=== PATIENT | female | born 2000 | race Caucasian/White ===

== ENCOUNTER → 2020-03-19 09:18 | Outpatient (CLI) | payer OTHER, SELFPAY ==
--- NOTE | ~2020-03-19 | MR_ITS ---
EXAMINATION: MR brain/brain stem wo/w con DATE: 03/19/2020 10:02 INDICATION: Increased severity of headache. Dizziness. TECHNIQUE: Magnetic resonance imaging (MRI) of the brain and brainstem was performed without and with 10 mL MultiHance intravenous contrast. Sequences included sagittal and axial T1-weighted FSE, axial diffusion-weighted FS EPI, axial T2*-weighted GRE, axial T2-weighted FLAIR Propeller, and axial T2-we ighted Propeller. Postcontrast sequences included axial and coronal T1-weighted FSE. Apparent diffusi on coefficient (ADC) maps were created. COMPARISON: None. FINDINGS: There is no intracranial hemorrhage, acute infarction, or abnormal intracranial mass lesion . The ventricles are normal in size. There is mild mucosal thickening in the paranasal sinuses. The o rbits are normal. The mastoid air cells are normal. IMPRESSION: 1. Normal brain. Reviewed, dictated and finalized at location A. IMPRESSION: 1. Normal brain.
[2020-03-19 09:40] LABS: Estimated Glomerular Filt Rate > 60
== END ==
PROVIDERS: PCP Registered Nurse; Visit Provider Registered Nurse
DX: R51.9 Headache, unspecified (principal); R42 Dizziness and giddiness
CPT/HCPCS: 70553; A9577

== ENCOUNTER 2024-05-23 15:41 | Inpatient (IN) | payer OTHER, BC, SELFPAY ==
[2024-05-23] VITALS (19 sets, daily range): BP systolic 84–122; BP diastolic 61–85; PULSE 59–101; TEMP 36.2–36.6; BMI 27.6
--- NOTE | 2024-05-23 15:41 | LDADM ---
This patient, Pushpa Alvarado, was admitted to Labor/Delivery/Recovery 108 on 05/23/24 at 15:41. Plans for labor, pain management and were discussed with patient. Patient/family oriented to hospital policies and general routines including ID bracelet, bed and alarms, visiting hours, pain management, procedures, bathroom and other care routines, personal items, smoking policy, room service/diet and guest tray routines, infant security routines, and visiting hours. Patient/Family are encouraged to report perceived risks to care and to ask questions if they do not understand what they are told or what they should do. See OBIX for further documentation.
[2024-05-23 16:27] LABS: Basophils Percent Auto 0.3 % (0.2-1.2); Eosinophils Absolute Auto 0.1 K/mm3 (0-0.3); Eosinophils Percent Auto 0.6 % (0-4.4); Hematocrit 35.4 % (37.0-47.0); Hemoglobin 12.4 g/dL (12.0-15.0); Immature Granulocyte Absolute 0.04 K/mm3 (0.00-0.031); Immature Granulocyte Percent A 0.4 % (0-0.5); Lymphocytes Absolute Auto 2.25 K/mm3 (0.9-3.2); Lymphocytes Percent Auto 20.1 % (18.3-44.2); Mean Corpuscular Hemoglobin 32.5 pg (26-34); Mean Corpuscular Volume 92.9 fl (80-100); Mean Platelet Volume 12.2 fl (7.4-10.4); Monocytes Absolute Auto 0.5 K/mm3 (0.1-0.6); Monocytes Percent Auto 4.3 % (2.6-8.5); Neutrophils Absolute Auto 8.3 K/mm3 (1.3-6.7); Neutrophils Percent Auto 74.3 % (45.5-73.1); Platelet Count Result 173 k/mm3 (150-375); Red Blood Count 3.81 M/mm3 (4.2-5.4); Red Cell Distribution Width 11.9 % (11.5-14.5); White Blood Count 11.2 K/mm3 (4.5-10.0)
[2024-05-23 16:56] LABS: Rapid Plasma Reagin Non-Reactive (NonReactive)
[2024-05-23] MEDS: DINOPROSTONE 10 MG VAG INSERT VAGINAL (17:13)
[2024-05-23 17:21] LABS: HIV 1/2 Ab P24 Ag Result Negative (Negative)
[2024-05-24] VITALS (164 sets, daily range): BP systolic 69–170; BP diastolic 45–106; PULSE 55–238; RESP 16; TEMP 36.2–37.2; O2SAT 92–100
[2024-05-24] MEDS: ACETAMINOPHEN 500 MG TABLET 1000 MG PO (01:22)
[2024-05-24] MEDS: fentaNYL CITRATE INJ (*CRX) 100 MCG/2 ML VIAL 50 MCG IV PUSH (03:47)
[2024-05-24] MEDS: LACTATED RINGERS 1,000 ML 999 ML IV CONT (05:15)
--- NOTE | 2024-05-24 05:55 | WPDANESEPPF ---
Anes - Initial Pre Proc Eval Procedure: Labor Epidural Date/Time: 05/24/24 05:55 Surgeon: Kilo Desir MD Pre Op Diagnosis: Labor Pain Pre Op Diagnosis: IOL Patient Data Age: 23 Gender: F Height: 1.63 m Weight: 73 kg Last Vital Signs Temp 37.2 C 05/24/24 05:15 Pulse 76 05/24/24 05:00 BP 106/75 05/24/24 05:00 Pulse Ox 97 05/24/24 05:51 O2 Del Method Room Air 05/23/24 17:20 Allergies Allergy/AdvReac Type Severity Reaction Status Date / Time No Known Allergies Allergy Verified 04/25/24 14:27 Home Medications ?Medication ?Instructions ?Recorded ?Confirmed ?Type vits no.126-ferrous fum 1 tablet PO DAILY 04/25/24 05/23/24 History 28 mg iron-folic acid 800 mcg tablet (Classic ) Laboratory Tests 05/23/24 16:07 WBC 11.2 H K/mm3 (4.5-10.0) RBC 3.81 L M/mm3 (4.2-5.4) Hgb 12.4 g/dL (12.0-15.0) Hct 35.4 L % (37.0-47.0) MCV 92.9 fl (80-100) MCH 32.5 pg (26-34) MCHC 35.0 g/dl (32-36) RDW 11.9 % (11.5-14.5) Plt Count 173 k/mm3 (150-375) MPV 12.2 H fl (7.4-10.4) Immature Gran % (Auto) 0.4 % (0-0.5) Neut % (Auto) 74.3 H % (45.5-73.1) Lymph % (Auto) 20.1 % (18.3-44.2) [place] % (Auto) 4.3 % (2.6-8.5) Eos % (Auto) 0.6 % (0-4.4) Baso % (Auto) 0.3 % (0.2-1.2) Lymph # (Auto) 2.25 K/mm3 (0.9-3.2) [place] # (Auto) 0.5 K/mm3 (0.1-0.6) Eos # (Auto) 0.1 K/mm3 (0-0.3) Baso # (Auto) 0.0 K/mm3 (0.0-0.1) Abs Immat Gran (auto) 0.04 H K/mm3 (0.00-0.031) Absolute Neuts (auto) 8.3 H K/mm3 (1.3-6.7) Absolute Nucleated RBC 0.000 K/mm3 (0.0-0.012) Nucleated RBC % 0.0 % (0.0-0.2) RPR Non-reactive (NonReactive) HIV 1&2 Ab/P24 Ag 4thGn Negative (Negative) Blood Type B Positive Antibody Screen Negative : gestational age (, [place] 05/19/24) Patient hx anesthesia problems: none Family hx anesthesia problems: none Results Review: All pre-operative results and documents have been reviewed as part of the pre-operative evaluation. [facility] Family History Family History Grandparent Breast cancer Mother H/O: hysterectomy Grandparent H/O: hysterectomy Social History Social History Smoking status: Former smoker Second hand tobacco smoke exposure: No Substance use: former Do You Feel Safe in your Home?: Yes Lack of Transportation: No Lack of Food: Never True Current Housing: I Have Housing Concerned About Future Housing: No Difficulty Paying Gas/Electric Bills: No Difficulty Paying for Meds: No Currently Unemployed: No Education: Bachelor's Degree Difficulty w/ Childcare or Family Care: No Spiritual care concerns: No Anes - Eval Final PreProcedure Day of Procedure 05/24/24 05:55 Patient weight: normal Heart: regular rate and rhythm Lungs: normal air movement Airway: Mallampati scale class II Neurological: alert and oriented Last oral intake: 2 hours ASA classification: II Emergent: no Anesthetic plan: proceed Anesthesia type and monitoring: regional epidural and standard monitoring Results Review: All pre-operative results and documents have been reviewed as part of the pre-operative evaluation. Informed Consent: The patient's anesthetic plan and its attendant risks and benefits were discussed with the patient/family/POA. Questions were solicited and answers provided to the satisfaction of the patient/family/POA.
--- NOTE | 2024-05-24 08:55 | PM.IMHP ---
H&P: HPI History of Present Illness Date/Time: 05/24/24 08:55 Chief Complaint: Here for induction of labor Narrative: 23 y/o G1 at 40 5/7 weeks here for induction of labor. Cervidil overnight, has been withdrawn. GBS neg. Now comfortable with epidural. Had SROM this morning, clear fluid. Review of Systems Review of Systems: All systems reviewed & are unremarkable except as noted in HPI and below PMFSH Past Medical History Medical History History of migraine Surgical History Surgical History History of wisdom tooth extraction Hx of LASIK Family History Family History Grandparent Breast cancer Mother H/O: hysterectomy Grandparent H/O: hysterectomy Social History Social History Smoking status: Former smoker Second hand tobacco smoke exposure: No Substance use: former Do You Feel Safe in your Home?: Yes Lack of Transportation: No Lack of Food: Never True Current Housing: I Have Housing Concerned About Future Housing: No Difficulty Paying Gas/Electric Bills: No Difficulty Paying for Meds: No Currently Unemployed: No Education: Bachelor's Degree Difficulty w/ Childcare or Family Care: No Spiritual care concerns: No Meds Home Medications and Allergies Home Medications ?Medication ?Instructions ?Recorded ?Confirmed ?Type vits no.126-ferrous fum 1 tablet PO DAILY 04/25/24 05/23/24 History 28 mg iron-folic acid 800 mcg tablet (Classic ) Allergies Allergy/AdvReac Type Severity Reaction Status Date / Time No Known Allergies Allergy Verified 04/25/24 14:27 Vital Signs Vital Signs - 24 hr 05/23/24 16:21 05/23/24 16:30 05/23/24 16:45 Temperature Pulse Rate 69 90 78 Blood Pressure 110/85 109/76 110/72 Pulse Oximetry Oxygen Delivery 05/23/24 17:00 05/23/24 17:16 05/23/24 17:18 Temperature 36.2 C L Pulse Rate 86 86 Blood Pressure 104/81 118/82 Pulse Oximetry Oxygen Delivery 05/23/24 17:19 05/23/24 17:20 05/23/24 17:30 Temperature 36.2 C L Pulse Rate 100 Blood Pressure 94/63 L Pulse Oximetry Oxygen Delivery Room Air 05/23/24 17:45 05/23/24 18:00 05/23/24 18:15 Temperature Pulse Rate 88 78 98 Blood Pressure 107/75 114/73 106/71 Pulse Oximetry Oxygen Delivery 05/23/24 18:30 05/23/24 18:45 05/23/24 19:00 Temperature Pulse Rate 101 H 100 76 Blood Pressure 113/70 106/61 122/83 Pulse Oximetry Oxygen Delivery 05/23/24 19:16 05/23/24 20:00 05/23/24 21:00 Temperature 36.6 C Pulse Rate 81 75 85 Blood Pressure 111/64 114/80 114/84 Pulse Oximetry Oxygen Delivery 05/23/24 22:00 05/23/24 23:00 05/24/24 00:00 Temperature Pulse Rate 68 59 L 62 Blood Pressure 99/65 L 84/69 L 125/75 Pulse Oximetry Oxygen Delivery 05/24/24 01:00 05/24/24 02:00 05/24/24 02:28 Temperature Pulse Rate 64 103 H Blood Pressure 130/79 114/71 Pulse Oximetry 98 Oxygen Delivery 05/24/24 02:33 05/24/24 02:36 05/24/24 02:41 Temperature Pulse Rate Blood Pressure Pulse Oximetry 98 99 98 Oxygen Delivery 05/24/24 02:46 05/24/24 02:51 05/24/24 02:54 Temperature Pulse Rate Blood Pressure Pulse Oximetry 99 99 96 Oxygen Delivery 05/24/24 02:54 05/24/24 02:59 05/24/24 03:04 Temperature Pulse Rate Blood Pressure Pulse Oximetry 99 96 99 Oxygen Delivery 05/24/24 03:09 05/24/24 03:14 05/24/24 03:19 Temperature Pulse Rate Blood Pressure Pulse Oximetry 98 98 98 Oxygen Delivery 05/24/24 03:23 05/24/24 03:28 05/24/24 03:33 Temperature Pulse Rate Blood Pressure Pulse Oximetry 98 99 97 Oxygen Delivery 05/24/24 03:38 05/24/24 03:43 05/24/24 03:48 Temperature Pulse Rate Blood Pressure Pulse Oximetry 99 100 99 Oxygen Delivery 05/24/24 03:53 05/24/24 03:58 05/24/24 04:00 Temperature Pulse Rate 72 70 Blood Pressure 110/68 118/62 Pulse Oximetry 98 97 Oxygen Delivery 05/24/24 04:03 05/24/24 04:08 05/24/24 04:13 Temperature Pulse Rate Blood Pressure Pulse Oximetry 97 98 97 Oxygen Delivery 05/24/24 04:18 05/24/24 04:23 05/24/24 04:28 Temperature Pulse Rate Blood Pressure Pulse Oximetry 96 98 98 Oxygen Delivery 05/24/24 04:33 05/24/24 04:38 05/24/24 04:43 Temperature Pulse Rate Blood Pressure Pulse Oximetry 97 97 98 Oxygen Delivery 05/24/24 04:48 05/24/24 04:53 05/24/24 04:58 Temperature Pulse Rate Blood Pressure Pulse Oximetry 100 99 98 Oxygen Delivery 05/24/24 05:00 05/24/24 05:03 05/24/24 05:08 Temperature Pulse Rate 76 Blood Pressure 106/75 Pulse Oximetry 98 98 Oxygen Delivery 05/24/24 05:13 05/24/24 05:15 05/24/24 05:16 Temperature 37.2 C Pulse Rate Blood Pressure Pulse Oximetry 97 98 Oxygen Delivery 05/24/24 05:21 05/24/24 05:26 05/24/24 05:31 Temperature Pulse Rate Blood Pressure Pulse Oximetry 99 100 100 Oxygen Delivery 05/24/24 05:36 05/24/24 05:41 05/24/24 05:46 Temperature Pulse Rate Blood Pressure Pulse Oximetry 98 100 100 Oxygen Delivery 05/24/24 05:49 05/24/24 05:49 05/24/24 05:51 Temperature Pulse Rate Blood Pressure Pulse Oximetry 100 100 97 Oxygen Delivery 05/24/24 05:51 05/24/24 05:56 05/24/24 05:59 Temperature Pulse Rate Blood Pressure Pulse Oximetry 97 98 96 Oxygen Delivery 05/24/24 06:01 05/24/24 06:03 05/24/24 06:04 Temperature Pulse Rate 92 95 Blood Pressure 111/73 129/70 Pulse Oximetry 98 Oxygen Delivery 05/24/24 06:05 05/24/24 06:08 05/24/24 06:09 Temperature Pulse Rate 81 88 Blood Pressure 123/64 119/53 L Pulse Oximetry 98 Oxygen Delivery 05/24/24 06:10 05/24/24 06:12 05/24/24 06:14 Temperature Pulse Rate 100 105 H 180 H Blood Pressure 69/54 L 146/86 H 110/45 L Pulse Oximetry 100 Oxygen Delivery 05/24/24 06:15 05/24/24 06:18 05/24/24 06:18 Temperature Pulse Rate 199 H 238 H Blood Pressure 124/85 78/55 L 99/61 L Pulse Oximetry Oxygen Delivery 05/24/24 06:19 05/24/24 06:20 05/24/24 06:23 Temperature Pulse Rate 211 H 94 Blood Pressure 95/71 L 109/64 Pulse Oximetry 100 Oxygen Delivery 05/24/24 06:24 05/24/24 06:25 05/24/24 06:28 Temperature Pulse Rate 92 134 H Blood Pressure 114/76 107/58 L Pulse Oximetry 99 Oxygen Delivery 05/24/24 06:29 05/24/24 06:30 05/24/24 06:33 Temperature Pulse Rate 84 86 Blood Pressure 126/72 135/69 Pulse Oximetry 100 Oxygen Delivery 05/24/24 06:34 05/24/24 06:35 05/24/24 06:38 Temperature Pulse Rate 233 H 94 Blood Pressure 127/96 H 122/74 Pulse Oximetry 99 Oxygen Delivery 05/24/24 06:39 05/24/24 06:40 05/24/24 06:43 Temperature 36.4 C Pulse Rate 106 H 169 H Blood Pressure 130/88 170/106 H Pulse Oximetry 100 Oxygen Delivery 05/24/24 06:44 05/24/24 06:46 05/24/24 06:49 Temperature Pulse Rate 78 Blood Pressure 93/69 L Pulse Oximetry 100 98 Oxygen Delivery 05/24/24 06:54 05/24/24 06:59 05/24/24 07:00 Temperature Pulse Rate 78 Blood Pressure 125/74 Pulse Oximetry 99 100 Oxygen Delivery 05/24/24 07:04 05/24/24 07:09 05/24/24 07:14 Temperature Pulse Rate Blood Pressure Pulse Oximetry 100 99 99 Oxygen Delivery 05/24/24 07:15 05/24/24 07:19 05/24/24 07:24 Temperature Pulse Rate 69 Blood Pressure 110/58 L Pulse Oximetry 98 98 Oxygen Delivery 05/24/24 07:29 05/24/24 07:30 05/24/24 07:34 Temperature Pulse Rate 69 Blood Pressure 121/73 Pulse Oximetry 98 99 Oxygen Delivery 05/24/24 07:39 05/24/24 07:44 05/24/24 07:45 Temperature Pulse Rate 71 Blood Pressure 118/77 Pulse Oximetry 98 99 Oxygen Delivery 05/24/24 07:49 05/24/24 07:54 05/24/24 07:59 Temperature Pulse Rate Blood Pressure Pulse Oximetry 99 100 99 Oxygen Delivery 05/24/24 08:00 05/24/24 08:04 05/24/24 08:09 Temperature Pulse Rate 84 Blood Pressure 127/75 Pulse Oximetry 99 99 Oxygen Delivery 05/24/24 08:14 05/24/24 08:15 05/24/24 08:17 Temperature Pulse Rate 90 Blood Pressure 127/79 Pulse Oximetry 100 92 Oxygen Delivery 05/24/24 08:22 05/24/24 08:27 05/24/24 08:30 Temperature Pulse Rate 87 Blood Pressure 119/76 Pulse Oximetry 99 99 Oxygen Delivery 05/24/24 08:32 05/24/24 08:35 05/24/24 08:36 Temperature 36.2 C L Pulse Rate Blood Pressure Pulse Oximetry 100 100 Oxygen Delivery 05/24/24 08:40 05/24/24 08:42 05/24/24 08:45 Temperature Pulse Rate 66 Blood Pressure 118/76 Pulse Oximetry 100 99 Oxygen Delivery 05/24/24 08:47 05/24/24 08:52 Temperature Pulse Rate Blood Pressure Pulse Oximetry 97 100 Oxygen Delivery Exam Const: Orientation/consciousness: patient oriented x3 Other: Well-developed, well-nourished female in no acute distress. Neck: Thyroid: thyroid normal Lymphatic: no lymphadenopathy noted (in neck, axilla or inguinal nodes) Resp: Effort & Inspection: normal respiratory effort Auscultation: clear to auscultation bilaterally Cardio: Rate: regular rate Rhythm: regular rhythm Heart sounds: S1 normal heart sound present and S2 normal heart sound present GI: Other: ABD: Soft, nontender, nondistended, gravid. NST reactive. TOCO: contractions every 3-4 min. No guarding or rebound tenderness. No hepatosplenomegaly. : General: Yes no CVA tenderness Other: Cervix 7-8/90/0. Vertex. Back/Spine/Pelvis: Back: no CVA tenderness Skin: General skin exam: normal color and no rashes or lesions noted Neuro: General: patient oriented x3 Extrem: Other: Extremities: nontender with no edema Psych: Mental Status: mental status grossly normal Affect: normal affect H&P: Results Labs Labs: Short CBC 05/23/24 Range/Units 16:07 WBC 11.2 H (4.5-10.0) K/mm3 Hgb 12.4 (12.0-15.0) g/dL Hct 35.4 L (37.0-47.0) % Plt Count 173 (150-375) k/mm3 Assessment and Plan Assessment and plan (1) Term : Code(s): Z34.90 - Encounter for supervision of normal , unspecified, unspecified trimester Status: Acute Assessment and Plan: A: IUP at 40 5/7 weeks gestation. P: Elective induction of labor. Reviewed risks, benefits and alternatives in detail. Oxytocin as needed. Anticipate .
[2024-05-24] MEDS: OXYTOCIN 30 UNITS/NS 500 ML 30 UNITS/500 ML BAG 999 UNITS IV CONT (11:07)
--- NOTE | 2024-05-24 11:20 | P.PCNOB_ITS ---
OB - Vaginal Delivery Note Procedure Delivery date: 05/24/24 Events: Elective Induction of Labor Induction method: Per Cervidil Protocol Delivery augmentation: Pitocin Delivery monitor: External FHT and External Uterine Route of delivery: Episiotomy description: None Laceration Description: None Specimen: Yes (cord blood) Quantitative Blood Loss (ml): 100 Anesthesia type: Epidural Disposition: PACU Complications: None Narrative: 23 y/o G1 at 40 5/7 weeks gestation who presented to the hospital for induction of labor. Cervidil was placed overnight, withdrawn in the morning. She had SROM with clear fluid. She received an epidural for pain control. Her labor progressed and her cervix dilated completely. She delivered the infant precipitously to the perineum. After a delay, the cord was clamped and cut. The was handed off the field. Cord blood was collected. The placenta delivered spontaneously and was grossly normal in appearance. The usual 3 vessel cord was noted. There were no lacerations. Needle and instrument counts were correct. The patient was taken to recovery room in stable condition. The infant went to the nursery in stable condition. I was present and scrubbed for the entire delivery. [place] Baby Date of : 05/24/24 Time of : 11:03 Gestational Age by Date: 40 Infant gender: Male presentation: vertex Placenta delivery description: Spontaneous and Normal Configuration Cord Vessel Description: 3 Vessels and Delayed Cord Clamping
--- NOTE | 2024-05-24 11:24 | P.DS_ITS ---
DS: Admitting Diagnosis Discharge Date 05/26/24 Admitting Diagnosis IUP at 40 5/7 weeks DS: Discharge Diagnosis Discharge Diagnosis (1) (normal spontaneous vaginal delivery): Code(s): O80 - Encounter for full-term uncomplicated delivery Status: Acute OB - DS: Summary OB Procedures : None OB Procedures Intrapartum: Spontaneous Vag Delivery OB Procedures: : None Peripartum Data Laceration Description: None Episiotomy description: None Time Spent with Patient Time attestation: Total time spent providing and/or coordinating discharge services: DS: Data Data Completed and Pending Labs on day of discharge: Labs from last 24 hours 05/23/24 16:07 WBC 11.2 H RBC 3.81 L Hgb 12.4 Hct 35.4 L MCV 92.9 MCH 32.5 MCHC 35.0 RDW 11.9 Plt Count 173 MPV 12.2 H Immature Gran % (Auto) 0.4 Neut % (Auto) 74.3 H Lymph % (Auto) 20.1 [place] % (Auto) 4.3 Eos % (Auto) 0.6 Baso % (Auto) 0.3 Lymph # (Auto) 2.25 [place] # (Auto) 0.5 Eos # (Auto) 0.1 Baso # (Auto) 0.0 Abs Immat Gran (auto) 0.04 H Absolute Neuts (auto) 8.3 H Absolute Nucleated RBC 0.000 Nucleated RBC % 0.0 RPR Non-reactive HIV 1&2 Ab/P24 Ag 4thGn Negative Blood Type B Positive Antibody Screen Negative Discharge Plan Discharge Attending physician on discharge: Kilo Desir Discharging Clinician: Kilo Desir Patient Disposition: Home, Self-Care Activity: pelvic rest Diet: regular Discharge Instructions: Call or return if temperature above 100.4? F, increased abdominal pain, increased vaginal bleeding or any new problems. Patient Language: [place] Stand Alone Forms: General Discharge Information Follow-up/Referrals: Kilo Desir MD [Physician] - 6 Weeks Discharge Medications: New ibuprofen 600 mg tablet 600 mg PO Q6H PRN (Reason: cramps) Qty: 30 0RF Continued Classic 28 mg iron- 800 mcg Tablet 1 tablet PO DAILY Date of admission: 05/23/24 15:41 Primary Care Provider: Castro,Ofe Admitting Provider: Kilo Desir Attending physician on admission: Kilo Desir Condition: Stable
[2024-05-24] MEDS: OXYTOCIN 30 UNITS/NS 500 ML 30 UNITS/500 ML BAG 125 UNITS IV CONT (11:40)
--- NOTE | 2024-05-24 14:45 | OBPPTRN ---
Patient transferred to post room #286 via wheelchair. Support person present. Oriented to unit, room, information board, rooming in, admission packet and security measures. Patient verbalizes understanding. with patient.
--- NOTE | 2024-05-24 16:53 | PC.NURSE ---
1500. Introductions were made, then consulted with patient to assess needs related to . Mother led the conversation with her?plans to feed?her infant and the?experience so far. Encouraged understanding of the benefits of skin to skin (demonstrating unwrapping infant and placing upright on her chest), stimulating with massage touch, changing positions to encourage wakefulness, how to watch for early feeding cues, responsive feeding, feeding on demand (aiming for 8-12 times in 24 hours, about every 2-3 hours), milk production, building/maintaining a milk supply, duration of feeding, signs of adequate intake/output and how to record on the feeding sheet. Mother works well with her with encouragement and education. Reviewed positioning and ear, shoulder, hip alignment, supporting the breast to facilitate a deep latch, asymmetrical latch (off-center), leading with the chin with a big, open, wide gape and body close to mother. sound asleep with no feeding cues at this time. Multiple attempts made to feed , mom was able to hand express a few drops of colostrum and feed to . Mom encouraged to do more s2s and wait for infants next feeding cues or repeat feeding attempt in the next 30 min. Encouraged mom to call with her next attempt to feed infant. Reviewed comfort measures of healing with a warm, wet washcloth to rinse breast, then leave open to air-dry, good handwashing when or touching the breast/nipples to prevent infection. Mother voiced understanding of skin to skin, stimulating with massage touch, responsive feedings, hand expressed colostrum, talking to infant to encourage if it has been 2 -2.5 hours since the start of the last , to call if infant does not latch, or if there is discomfort with . Resources used for education were facilitated with the visual educational handouts. Inpatient resources provided with feeding sheet, name written on the communication board, and the mom/baby guide. Parents voiced understanding of information, demonstrated learning and will call if there is a request for assistance. Reported to the Primary RN.
[2024-05-24] MEDS: DOCUSATE SODIUM 100 MG CAPSULE PO (18:41)
[2024-05-25 04:13] VITALS: BP 110/71; PULSE 58; RESP 16; TEMP 36.8; O2SAT 100
[2024-05-25 04:32] LABS: Hematocrit 34.9 % (37.0-47.0); Hemoglobin 11.6 g/dL (12.0-15.0)
[2024-05-25 07:55] VITALS: BP 127/87; PULSE 66; RESP 18; TEMP 36.3; O2SAT 99
--- NOTE | 2024-05-25 08:13 | WPDANLDPN2 ---
Anes-Prog Note L&D Date/Time: 05/25/24 08:13 Neuro status: Neuro function grossly intact. Vital Signs: Last Vital Signs Temp 36.8 C 05/25/24 04:13 Pulse 58 L 05/25/24 04:13 Resp 16 05/25/24 04:13 BP 110/71 05/25/24 04:13 Pulse Ox 100 05/25/24 04:13 O2 Del Method Room Air 05/24/24 20:30 Pain score (VAS): 0 I/O: Intake & Output 05/24/24 05/25/24 05/25/24 23:59 07:59 15:59 Intake Total 500 Balance 500 Patient feedback: Patient satisfied with anesthetic care.
[2024-05-25] MEDS: DOCUSATE SODIUM 100 MG CAPSULE PO (08:21)
[2024-05-25] MEDS: MULTIVIT/MIN/PREN/FOL AC/IRON TABLET 1 TAB PO (08:21)
--- NOTE | 2024-05-25 09:35 | PC.NURSE ---
7569- Introductions were made, then consulted with patient to assess needs related to . Discussed with mother her?plans to feed?her and the?experience so far. Baby is sleepy but does give some effort to latch. Mom has been hand expressing drops into his mouth and using a bottle nipple to get him to suck also. Encouraged her to call for assistance at the net feeding. Resources provided for inpatient and outpatient services with the feeding sheet, mom/baby guide and name/number written on the communication board. Mother voiced understanding of information and will call if there is a request for assistance. Reported to the Primary RN. [id number]- Patient called out for assistance. We worked with baby on the right side and he did open his eyes and give a lot of attempts to latch with a few successful sucks. He seems to struggle to maintain the latch and may be holding his tongue up at the back (hump). We switched to the right side and he did latch and maintain for 15-20 minutes. He appeared to have a somewhat weak suck and he wasn't giving many nutritive sucks. Discussed with mom the difference between a suck that transfers milk and one that doesn't. Recommended to mom that she begin pumping or hand express after every so we can protect her supply and also have additional supplement to give to baby. Parents had concerns about his blood sugar and we discussed signs of a low sugar, i.e. lethargy, unable to wake, no feeding cues. Assured them that we will check a blood sugar if baby goes too long between feeds or gives and signs/symptoms of low glucose. Parents verbalized understanding. Reported to primary RN.
--- NOTE | 2024-05-25 12:52 | P.PNOB_ITS ---
OB - PN: Subj Subjective Date/time seen: 05/25/24 12:52 Narrative: Pain OK. Would like circumcision for son. OB - PN: Obj Data Labs 05/25/24 03:45 Labs: Laboratory Results - last 24 hr 05/25/24 03:45 Hgb 11.6 L Hct 34.9 L OB - PN A/P Plan Comments: A: PPD#1, doing well. P: Reviewed circ. Routine care. Exam 2 Psych: Other: AVSS ABD soft, nontender, fundus firm EXT nontender
--- NOTE | 2024-05-25 16:00 | PC.NURSE ---
1600- Patient called for assistance. Baby was wide awake and alert. He would barely open his mouth, not a wide gape. We tried for about 15 minutes and baby would hold the nipple in his mouth but wouldn't suck. We switched to a few different positions but still he wouldn't suck. Offered mother a nipple shield. She agreed to try it since baby had sucked well on the pacifier and bottle nipple. Patient shown how to apply the shield and how to maintain a close and deep latch. Baby keeps his tongue to the roof of his mouth and isn't able to cup his tongue under the nipple. We worked very hard to get his tongue down and a wide gape to latch. Finally he did latch at 1620 on the nipple shield and sucked with stimulation. His suckles are not very strong but the nipple was pulled into the shield. Educated mom on continuing to pump and supplement with whatever breastmilk she gets. If it's just drops she uses a finger to place them in baby's mouth. We discussed the option of supplementing and mom is not ready to do that at this time. Encouraged her to see how feedings go this evening and to see what his weight is at mignight and then determine the best course of action. Mom wants to feel comfortable with feedings when she goes home. She handles baby very well and does a great job at encouraging him and expressing colostrum for him. Reported to primary RN.
[2024-05-25 20:00] VITALS: BP 134/87; PULSE 83; RESP 20; TEMP 36.5; O2SAT 98
[2024-05-26 08:30] VITALS: BP 111/77; PULSE 59; RESP 16; TEMP 36.9; O2SAT 96
--- NOTE | 2024-05-26 09:23 | P.PNOB_ITS ---
OB - PN: Subj Subjective Date/time seen: 05/26/24 09:23 Narrative: Pain OK. Would like to go home. OB - PN: Obj Data Labs 05/25/24 03:45 OB - PN A/P Plan day: 2 Comments: A: PPD#2, doing well. P: Home to f/u 6 weeks. Exam 2 Psych: Other: AVSS ABD soft, nontender, fundus firm EXT nontender
[2024-05-26] MEDS: MULTIVIT/MIN/PREN/FOL AC/IRON TABLET 1 TAB PO (09:27)
[2024-05-26] MEDS: DOCUSATE SODIUM 100 MG CAPSULE PO (09:27)
[2024-05-26] MEDS: TETANUS,DIPHTHERIA,AC PERTUSSIS ADULT (0.5 ML) BOOSTRIX IM (13:35)
--- NOTE | 2024-05-26 14:10 | PC.NURSE ---
Patient viewed the discharge video Mother & Baby Care, The First Two Weeks . Patient was given the opportunity and encouraged to ask questions. Patient verbalized understanding of information shared and has been given the mother/baby guide for home reference.
--- NOTE | 2024-05-26 16:51 | PC.NURSE ---
1110. Mother verbalizes she is able to independently latch with appropriate positioning and alignment. She denies any nipple discomfort and is responsively . She is currently supplementing with EBM or formula after every attempt per Drs order due to not making a wet diaper for 12 hours. She is aiming to supplement around 20ml after each feeing or whatever infant will take without spitting up. She declines the need for a WIC referral at this time. Mom reports she does have some sore nipples, she is currently using silverettes and nipple butter . She is feeding around 20min average for each attempt. Reviewed positioning and alignment, supporting breast, off-centered (asymmetrical latch) and leading with the chin with big, open, wide gape. Infant is currently meeting outcomes for weight (down 6.42%), output, jaundice, blood sugar and feeding frequencies of 8-12 times in 24 hours. Mother declines any additional assistance or education at this time. Mother is encouraged to call for assistance if her infant doesn?t latch, pain with latching, questions or concerns. Mother voiced understanding of information shared along with the mom/baby guide for an additional resource. Reported to the Primary RN.
[2024-05-29 09:07] VITALS: BP 110/70; PULSE 87; RESP 18; TEMP 37.2; O2SAT 100
--- OUTSIDE RECORDS SUMMARY | 2024-05-30 13:59 | XMS_ITS | Encounter Summary ---
Author Organization [facility] Address [address] [place] [address]. [place] [address] [place] [address] Care Team Providers Care Date Pitter Name Role Phone Ofe Julien Primary Care Provider [phone] Reason for Visit * Reason Onset Date Comments Lab Results 06/23/2023 Encounter Details Date Type Department Care Team (Late st Contact Info) Description 06/23/2023 Telephone [facility] Medical Group Family & Internal Medicine [facility] [address] [place] [address] Ofe Julien APNP [facility] [place] [address] Lab Results Social History Tobacco Use Types Packs/Day Years Used Date Smoking Tobacco: Never Smokeless Tobacco: Never Alcohol Use Standard Drinks/Week Comments Yes 3.3 (1 standard drink = 0.6 oz p ure alcohol) 2 drinks twice a week PHQ-2 Answer Date Recorded Patient Health Questionnaire-2 Score 0 06/17/2023 Comments No Sex and Gender Information Value Date Recorded Sex Assigned at Not on file Legal Sex Female 3:56 PM CDT Gender Identity Not on file Sexual Orientation Not on file documented as of this encounter Progress Notes * Linda Lechuga MA - 06/23/2023 12:02 PM CST ----- Message from NORMAN Mcconnell sent at 06/21/2023 8:28 PM DATE PITTER ----- Some mild anemia noted----are her periods heavy? Other labs OK PITTER documented in this encounter Plan of Treatment Not on file documented as of this encounter Visit Diagnoses Diagnosis Anemia- Primary Anemia, unspecified documented in this encounter Care Teams Date Pitter Relationship Specialty Start Date End Date Ofe Julien APNP [address] [place] [address] PCP - General NURSE PRACTITIONER 09/24/19 documented as of this encounter
--- OUTSIDE RECORDS SUMMARY | 2024-05-30 13:59 | XMS_ITS | Encounter Summary ---
Author Organization [facility] Address [address] [place] [address]. [place] [address] [place] [address] Care Team Providers Care Commercial Green Retrofit Architect Name Role Phone Ofe Julien NORMAN Primary Care Provider [phone] Encounter Details Date Type Department Care Team (Latest Contact Info) Description 04/22/[address] [facility] Medical Group Multispecialty Care - [facility] [address] [facility], [address] [place] [address] Aravidn Munguia MD [address] [place] [address] Insurance Coverage for Botox Apt Social History Tobacco Use Types Packs/Day Years Used Date Smoking Tobacco: Never Smokeless Tobacco: Never Alcohol Use Standard Drinks/Week Comments Yes 3.3 (1 standard drink = 0.6 oz p ure alcohol) 2 drinks twice a week PHQ-2 Answer Date Recorded PHQ-2 Score - If the patient scores above 3, please move on to questions 3-9 0 04/09/2022 Comments No Sex and Gender Information Value Date Recorded Sex Assigned at Not on file Legal Sex Female 3:56 PM CDT Gender Identity Not on file Sexual Orientation Not on file COVID-19 Exposure Response Date Recorded In the last 10 days, have yo u been in contact with someone who was confirmed or suspected to have Coronavirus/COVID-19? No / Unsure 04/09/2022 10:27 AM BLENDING MACHINE OPERATOR documented as of this encounter Progress Notes * June Barry MA - 04/22/2022 11:02 AM CSTFrom: Pushpa Alvarado To: Dr. Aravind Munguia Sent: 04/22/2022 10:20 AM BLENDING MACHINE OPERATOR Subject: Insurance Coverage for Botox Apt Hi, I was just wondering if my insurance accepted that they would pay for the Botox injections on the ? I haven???t heard anything yet and if they won???t cover I???ll need to cancel. Thank you! DING MACHINE OPERATOR documented in this encounter Plan of Treatment Not on file documented as of this encounter Visit Diagnoses Not on filedocumented in this encounter Care Teams Commercial Green Retrofit Architect Relationship Specialty Start Date End Date Ofe Julien APNP [address] [place] [address] PCP - General NURSE PRACTITIONER 09/24/19 documented as of this encounter
--- OUTSIDE RECORDS SUMMARY | 2024-05-30 13:59 | XMS_ITS | Encounter Summary ---
Author Organization [facility] Address [address] [place] [address]. [place] [address] [place] [address] Care Team Providers Care General Partner Name Role Phone Ofe Julien Primary Care Provider Encounter Details Date Type Department Care Team (Latest Contact Info) Description 06/17/2023 - 06/17/2023 11:59 PM [facility] Hospital Encounter [facility] [address] [place] [address] Ofe Julien APNP [address] [place] [address] Discharge Disposition: Home or Self Care (Routine Discharge) Social History Tobacco Use Types Packs/Day Years [...] on file documented as of this encounter Medications at Time of Discharge eletriptan (RELPAX) 40 MG tabletIndications :Intractable migraine without aura and without status migrainosus Take 1 tablet (40 mg total) by mouth as needed. may repeat in 2 hours if necessary 27 tablet 3 02/11/2023 Onabotulinumtoxin A (BOTOX IJ)Indications:Mi graine Indications: Migraine Headache documented as of this encounter Plan of Treatment Not on file documented as of this encounter Visit Diagnoses Not on filedocumented in this encounter Care Teams General Partner Relationship Specialty Start Date End Date Ofe Julien APNP [address] [place] [address] PCP - General NURSE PRACTITIONER 09/24/19 documented as of this encounter
--- OUTSIDE RECORDS SUMMARY | 2024-05-30 13:59 | XMS_ITS | Encounter Summary ---
Author Organization [facility] Address [address] [place] [address]. [place] [address] [place] [address] Care Team Providers Care Music Video Producer Name Role Phone Ofe Julien NORMAN Primary Care Provider [phone] Reason for Visit * Reason Onset Date Comments Question 09/16/2023 Encounter Details Date Type Department Care Team (Late st Contact Info) Description 09/16/2023 Telephone [facility] Medical [facility] Neurology Speciality [facility] - [address] [place] [address] Lucius Jacques MD [address] [place] [phone] Question Social History Tobacco Use Types Packs/Day Years [...] as of this encounter Progress Notes * Liza Ling - 09/16/2023 9:06 AM CDT Patient is 5 weeks , can she still get botox injection on 09/28/23? Please call patient and advise [phone] documented in this encounter Plan of Treatment Not on file documented as of this encounter Visit Diagnoses Not on filedocumented in this encounter Care Teams Music Video Producer Relationship Specialty Start Date End Date Ofe Julien APNP [address] [place] [address] PCP - General NURSE PRACTITIONER 09/24/19 documented as of this encounter
--- OUTSIDE RECORDS SUMMARY | 2024-05-30 13:59 | XMS_ITS | Encounter Summary ---
Author Organization [facility] Address [address] [place] [address]. [place] [address] [place] [address] Care Team Providers Care Faa Certified Powerplant Mechanic Name Role Phone Ofe Julien Primary Care Provider [phone] Encounter Details Date Type Department Care Team (Latest Contact Info) Description 04/28/2022 Travel Social History Tobacco Use Types Packs/Day Years [...] suspected to have Coronavirus/COVID-19? No / Unsure 04/28/2022 3:20 PM HOT MIX OPERATOR documented as of this encounter Plan of Treatment Not on file documented as of this encounter Visit Diagnoses Not on filedocumented in this encounter Care Teams Faa Certified Powerplant Mechanic Relationship Specialty Start Date End Date Ofe Julien APNP [address] [place] [address] PCP - General NURSE PRACTITIONER 09/24/19 documented as of this encounter
--- OUTSIDE RECORDS SUMMARY | 2024-05-30 13:59 | XMS_ITS | Encounter Summary ---
Author Organization [facility] Address [address] [place] [address]. [place] [address] [place] [address] Care Team Providers Care Auditing Clerk Name Role Phone Ofe Julien Primary Care Provider [phone] Encounter Details Date Type Department Care Team (Latest Contact Info) Description 11/24/2022 Scan HEALTH INFO SRVCS Scanned, Doc Med Group Social History Tobacco Use Types Packs/Day Years [...] on file documented as of this encounter Plan of Treatment Not on file documented as of this encounter Visit Diagnoses Not on filedocumented in this encounter Care Teams Auditing Clerk Relationship Specialty Start Date End Date Ofe Julien APNP [address] [place] [address] PCP - General NURSE PRACTITIONER 09/24/19 documented as of this encounter
--- OUTSIDE RECORDS SUMMARY | 2024-05-30 13:59 | XMS_ITS | Encounter Summary ---
Author Organization [facility] Address [address] [place] [address]. [place] [address] [place] [address] Care Team Providers Care Boardinghouse Keeper Name Role Phone Ofe Julien Primary Care Provider [phone] Encounter Details Date Type Department Care Team (Latest Contact Info) Description 08/09/2022 Travel Social History Tobacco Use Types Packs/Day [...] suspected to have Coronavirus/COVID-19? No / Unsure 08/09/2022 11:22 AM CDT documented as of this encounter Plan of Treatment Not on file documented as of this encounter Visit Diagnoses Not on filedocumented in this encounter Care Teams Boardinghouse Keeper Relationship Specialty Start Date End Date Ofe Julien APNP [address] [place] [address] PCP - General NURSE PRACTITIONER 09/24/19 documented as of this encounter
--- OUTSIDE RECORDS SUMMARY | 2024-05-30 13:59 | XMS_ITS | Encounter Summary ---
Author Organization [facility] Address [address] [place] [address]. [place] [address] [place] [address] Care Team Providers Care Patient Registration Clerk Name Role Phone Ofe Julien NORMAN Primary Care Provider [phone] Reason for Visit * Reason Onset Date Comments Medication 02/11/2023 Encounter Details Date Type Department Care Team (Late st Contact Info) Description 02/11/2023 Telephone [facility] Medical Group Family & Internal Medicine [address] [address] Lucius Jacques MD [address] [place] [address] Medication Social History Tobacco Use Types Packs/Day Years [...] as of this encounter Progress Notes * Kaycee Rivera MD - 02/11/2023 12:01 PM CDTAddended by: KAYCEE RIVERA on: 02/11/2023 12:01 PM Modules accepted: Orders * Liza Ling - 02/11/2023 11:43 AM CDT Medication refill eletriptan (RELPAX) 40 MG tablet [facility] 90 day supply [phone] documented in this encounter Plan of Treatment Not on file documented as of this encounter Visit Diagnoses Diagnosis Intractable migraine without aura and without status migrainosus Migraine without aura, with intractable migraine, so stated, without mention of status migrainosus documented in this encounter Care Teams Patient Registration Clerk Relationship Specialty Start Date End Date Ofe Julien APNP [address] [place] [phone] PCP - General NURSE PRACTITIONER 09/24/19 documented as of this encounter
--- OUTSIDE RECORDS SUMMARY | 2024-05-30 13:59 | XMS_ITS | Encounter Summary ---
Author Organization [facility] Address [address] [place] [address]. [place] [address] [place] [address] Care Team Providers Care Dot Etcher Apprentice Name Role Phone Ofe Julien Primary Care Provider [phone] Encounter Details Date Type Department Care Team (Latest Contact Info) Description 05/19/2023 Playtox Message Enc [facility] Medical Group Multispecialty Care - [facility] [address] [facility], [address] [place] [address] Lucius Jacques MD [address] [place], [place] [id number] Insurance Change Social History Tobacco Use Types Packs/Day Years [...] on filedocumented in this encounter Care Teams Dot Etcher Apprentice Relationship Specialty Start Date End Date Ofe Julien APNP [address] [place] [phone] PCP - General NURSE PRACTITIONER 09/24/19 documented as of this encounter
--- OUTSIDE RECORDS SUMMARY | 2024-05-30 13:59 | XMS_ITS | Clinical Summary ---
Author Organization [facility] Address [address] [place] [address]. [place] [address] [place] [address] Care Team Providers Care Automatic Clipper Name Role Phone Ofe Julien NORMNA Primary Care Provider Allergies No known active allergies Medications eletriptan (RELPAX) 40 MG tabletIndication s:Intractable migraine without aura and without status migrainosus Take 1 tablet (40 mg total) by mouth as needed. may repeat in 2 hours if necessary 27 tablet 3 3 Active Onabotulinumtoxi nA (BOTOX IJ)Indications:M igraine Indications: Migraine Headache Active Active Problems Problem Noted Date Diagnosed Date Chronic migraine without aur a without status migrainosus, not intractable 05/24/2023 Migraine with aura 08/10/2022 Intractable migraine without aura and without status migrainosus 03/04/2020 control 09/20/2018 Annual physical exam 09/20/2018 Overview (09/27/2019): Last Assessment & Plan: Encouraged healthy lifestyle, good nutrition and exercise. Encouraged Calcium and Vitamin D and weight bearing exercise for bone health. Reviewed immunizations Reviewed age appropirate screenings. Encouraged to obtain vaccine records to make part of her chart here. Acne vulgaris 09/19/2018 Surveillance of previously prescribed contracept sabina pill 09/19/2018 Overview (09/27/2019): Last Assessment & Plan: Doing well with ocp. Continue daily. Immunizations Name Administration Dates Next Due Influenza (Generic) 08/08/2019 MMR 01/11/2005,10/26/2000 Tdap (Boostrix) 08/08/2019 Family History Medical History Relation Comments Arthritis Mother Cancer Paternal Grandmother Breast canc er Relation Status Comments Mother Paternal Grandmother Social History Tobacco Use Types Packs/Day Years Used Date Smoking Tobacco: Never Smokeless Tobacco: Never Tobacco Cessation:Counseling Given: Not Answered Alcohol Use Standard Drinks/Week Comments Yes 3.3 (1 standard drink = 0.6 oz p ure alcohol) 2 drinks twice a week PHQ-2 Answer Date Recorded Patient Health Questionnaire-2 Score 0 06/17/2023 Comments No Sex and Gender Information Value Date Recorded Sex Assigned at Not on file Legal Sex Female 3:56 PM CDT Gender Identity Not on file Sexual Orientation Not on file Last Filed Vital Signs Vital Sign Reading Time Taken Comments Blood Pressure 117/80 06/22/2023 11:48 AM LABEL PRINTING MACHINIST Pulse 70 06/22/2023 11:48 AM LABEL PRINTING MACHINIST Temperature 36.7 ??C (98.1 ??F) 06/22/2023 11:[address] Respiratory Rate 16 06/17/2023 8:29 AM LABEL PRINTING MACHINIST Oxygen Saturation 100% 06/22/2023 11:48 AM LABEL PRINTING MACHINIST Inhaled Oxygen Concentration - - Weight 62.4 kg (137 lb 8 oz) 06/22/2023 11:48 AM LABEL PRINTING MACHINIST Height 162.6 cm (5' 4 ) 06/22/2023 11:48 AM LABEL PRINTING MACHINIST Body Mass Index 23.6 06/22/2023 11:48 AM LABEL PRINTING MACHINIST Plan of Treatment Health Maintenance Due Date Last Done Comments Cervical Cancer Screening Pa p Smear (Age 21 to 29) Every 3 Years 1999 HPV Vaccines (1 - 3-dose series) 10/12/2014 Chlamydia Screening Females ages 16-24 2015 Hepatitis B Vaccines (1 of 3 - 19+ 3-dose series) 10/12/2018 COVID-19 Vaccine ( - 2023-2 5 season) 2024 Influenza Adult (#1) 2024 08/08/2019 Annual Physical 06/17/2024 06/17/2023, 09/27/2019 Cervical Cancer Screening 06/17/2024 Po stponed from 1999 (Going to Outside Clinic) DTaP, Tdap and Td Vaccines ( 2 - Td or Tdap) 08/07/2029 08/08/2019 Hepatitis C Completed 06/17/2023 Meningococcal Vaccine Aged Out No shashank lisa eligible based on patient's age to complete this topic Pneumococcal Vaccine: Pediatrics (0 to 5 Years) and At-Risk Patients (6 to 64 Years) Aged Out No longer eligible b ased on patient's age to complete this topic RSV Immunizations Under 20 Months Aged Out No longer eligible b ased on patient's age to complete this topic Procedures Procedure Name Priority Date/Time Associated Diagnosis Comments HEPATITIS C ANTIBODY Routine 06/17/2023 9:11 AM LABEL PRINTING MACHINIST Need for hepatitis C screening test from Last 3 Months or Most Recently Relevant to Health Maintenance Results * HEPATITIS C AB ([facility] ONLY) (06/17/2023 9:11 AM LABEL PRINTING MACHINIST) HEPATITIS C AB NON-REACTI VE NON-REACT SABINA 06/17/2023 6:49 PM LABEL PRINTING MACHINIST [facility] Comment: ANTIBODIES TO HCV NOT DETECTED. DOES NOT EXCLUDE THE POSSIBILITY OF EXPOSURE TO HCV. 06/17/2023 9:11 AM LABEL PRINTING MACHINIST [facility] Final Resul t [facility] [address] [place] [address], [id number] from Last 3 Months or Most Recently Relevant to Health Maintenance Insurance AET[employer] AET[employer] Care Teams Automatic Clipper Relationship Specialty Start Date End Date Ofe Julien APNP [address] [place] [id number] PCP - General NURSE PRACTITIONER 09/24/19
--- OUTSIDE RECORDS SUMMARY | 2024-05-30 13:59 | XMS_ITS | Encounter Summary ---
Author Organization [facility] Address [address] [place] [address]. [place] [address] [place] [address] Care Team Providers Care Occupational Physician Name Role Phone Ofe Julien Primary Care Provider [phone] Encounter Details Date Type Department Care Team (Latest Contact Info) Description 04/28/2022 Scan HEALTH INFO SRVCS Scanned, Doc Med [...] Coronavirus/COVID-19? No / Unsure 04/28/2022 3:20 PM BOILER WATER TESTER documented as of this encounter Plan of Treatment Not on file documented as of this encounter Visit Diagnoses Not on filedocumented in this encounter Care Teams Occupational Physician Relationship Specialty Start Date End Date Ofe Julien APNP [address] [place] [id number] PCP - General NURSE PRACTITIONER 09/24/19 documented as of this encounter
--- OUTSIDE RECORDS SUMMARY | 2024-05-30 13:59 | XMS_ITS | Encounter Summary ---
Author Organization [facility] Address [address] [place] [address]. [place] [address] [place] [address] Care Team Providers Care Charge Nurse Name Role Phone Ofe Julien Primary Care Provider [phone] Encounter Details Date Type Department Care Team (Latest Contact Info) Description 04/01/2023 Scan HEALTH INFO SRVCS Scanned, Doc Med [...] on filedocumented in this encounter Care Teams Charge Nurse Relationship Specialty Start Date End Date Ofe Julien APNP [address] [place] [address] PCP - General NURSE PRACTITIONER 09/24/19 documented as of this encounter
--- OUTSIDE RECORDS SUMMARY | 2024-05-30 13:59 | XMS_ITS | Encounter Summary ---
Author Organization [facility] Address [address] [place] [address]. [place] [address] [place] [address] Care Team Providers Care Room Service Clerk Name Role Phone Ofe Julien Melania AUSTIN Primary Care Provider +1 [phone] Reason for Visit * Reason Comments Botox botox migraines 155 units * Treatment/Therapy Plan Authorization (Routine) - Closed Specialty Diagnoses / Procedures Referred By Contac t Referred To Contact Diagnoses Chronic migraine without aura without status migrainosus, not intractable Procedures BOTULINUM TOXIN A PER UNIT Lucius Jacques MD [address] [place] [address] Phone: tel: fax: [facility] - [address], [address] [place] [address] Phone: tel: Referral ID Status Reason Start Date Expiration Date Visits Re quested Visits Authorized [id number] Closed 06/13/2023 02/24/2024 3 3 Encounter Details Date Type Department Care Team (Latest Contact Info) Description 06/22/2023 11:40 AM VICE PRESIDENT COMPLIANCE Office Visit [facility] - [address], [address] [place] [phone] Lucius Jacques MD [address] [place] [address] Botox (botox migraines 155 units) Social History Tobacco Use Types Packs/Day Years [...] on file documented as of this encounter Last Filed Vital Signs Vital Sign Reading Time Taken Comments Blood Pressure 117/80 06/22/2023 11:48 AM VICE PRESIDENT COMPLIANCE Pulse 70 06/22/2023 11:48 AM VICE PRESIDENT COMPLIANCE Temperature 36.7 ??C (98.1 ??F) 06/22/2023 11:[address] Respiratory Rate - - Oxygen Saturation 100% 06/22/2023 11:48 AM VICE PRESIDENT COMPLIANCE Inhaled Oxygen Concentration - - Weight 62.4 kg (137 lb 8 oz) 06/22/2023 11:48 AM VICE PRESIDENT COMPLIANCE Height 162.6 cm (5' 4 ) 06/22/2023 11:48 AM VICE PRESIDENT COMPLIANCE Body Mass Index 23.6 06/22/2023 11:48 AM VICE PRESIDENT COMPLIANCE documented in this encounter Progress Notes * Heather Madrigal MA - 06/22/2023 11:40 AM CSTAddended by: HEATHER MADRIGAL on: 06/24/2023 10:57 AM Modules accepted: Orders PRESIDENT COMPLIANCE * Lucius Jacques MD - 06/22/2023 11:40 AM CST Botox treatment cycle number: 5 Lot type: buy and bill Wastage: 45 Botox Injection Procedure Informed consent: signed by patient. Confirmed: patient, procedure, safety procedures followed. Preparation: no contraindications noted to Botox, sterile preparation of site in usual fashion. Procedure tolerated: well. Complications: none. Indication : Chronic Migraines Interval History: Her migraines transitioned from chronic to episodic. She is off cycle by 2-3 weeks and her migraines have been worse during this time. She responds well to Relpax. Number of Migraine days: 2 per month. The patient was explained about the benefits and the possible side effects associated with Botox injections. The patient vocalized understanding and agreed to proceed with the injections. After the patient was prepped in a sterile manner, Botox was administered at 31 different sites andthe total amount of Botox administered was 155 units. PREEMPT protocol was followed for the administration. Per PREMPT protocol, patient was injected with botox - 155 units at 31 different sites. A. Stripper Shovel Operator : 10 Units divided in 2 sites B. Procerus : 5 Units in one site C. Frontalis : 20 units divided in 4 sites D. Temporalis : 40 Units divided between 8 sites E. Occipitalis : 30 Units divided between 6 sites F. Cervical Paraspinals : 20 Units divided between 4 sites G. Trapezius : 30 Units divided in 6 sites Patient tolerated the procedure very well. There is very minimal blood loss during this procedure. There were no immediate post procedure complications. I educated the patient about the nature of the therapy, the usual therapeutic onset of the drug andthe duration of efficacy and also about the common side effects to watch out for. Return to neurology clinic 3 months Addendum: patient is currently , and her headaches have worsened. I will do MRI of the brain without contrast to rule out structural lesion causing these headaches. In addition, the headaches are waking her up, and a thunderclap like. I will do MRA of the head without contrast for cerebral aneurysm. I will also do MR venogram to rule out dural venous thrombosis. Based on MRI scans, I will discuss further treatment options with her. PRESIDENT COMPLIANCE documented in this encounter Plan of Treatment Scheduled Orders Name Type Priority Associated Diagnoses Orde r Schedule CHEMODENERVATION MUSCLE INNERVTD, BILAT Procedures Routine Chronic migraine w/o aura w/o status migrainosus, not intractable Ordered: 06/23/2023 documented as of this encounter Visit Diagnoses Diagnosis Chronic migraine w/o aura w/o status migrainosus, not intractable- Primary Chronic migraine without aura, without mention of intractable migraine without mention of status migrainosus Chronic migraine without aura without status migrainosus, not intractable Chronic migraine without aura, without mention of intractable migraine without mention of status migrainosus documented in this encounter Administered Medications Inactive Administered Medications - up to 3 most recent administrations Medication Order MAR Action Action Date Dose Rate Site botulinum toxin type A (BOTOX) injection 155 Units 155 Units, Intramuscular, Once, 1 dose, On Tue06/24/23 at 1115, * 200 unit vial *Indications:Chronic migraine without aura without status migrainosus, not intractable Given 06/22/2023 11:40 AM VICE PRESIDENT COMPLIANCE 155 Units Other documented in this encounter Care Teams Room Service Clerk Relationship Specialty Start Date End Date Ofe Julien APNP [address] [place] [address] PCP - General NURSE PRACTITIONER 09/24/19 documented as of this encounter
--- OUTSIDE RECORDS SUMMARY | 2024-05-30 13:59 | XMS_ITS | Encounter Summary ---
Author Organization [facility] Address [address] [place] [address]. [place] [address] [place] [address] Care Team Providers Care Multimedia Services Manager Name Role Phone Ofe Julien Primary Care Provider +1 [phone] Encounter Details Date Type Department Care Team (Late st Contact Info) Description 09/22/2023 1:40 PM CDT Laboratory Only [facility] [address] [id number] [place] [address] Ofe Julien APNP [facility] [place] [address] Social History Tobacco Use Types Packs/Day Years [...] on file documented as of this encounter Procedures Procedure Name Priority Date/Time Associated Diagnosis Comments COLLECTION VENOUS BLOOD VENIPUNCTURE Routine 09/22/2023 1:54 PM CDT Anemia Fatigue IRON SAT PANEL (IRON,IBC,%SAT) Routine 09/22/2023 1:38 PM CDT Anemia Fatigue CBC W/DIFF AUTOMATED Routine 09/22/2023 1:38 PM CDT Anemia Fatigue FERRITIN Routine 09/22/2023 1:38 PM CDT Anemia Fatigue documented in this encounter Results * IRON SAT PANEL (IRON,IBC,%SAT) (09/22/2023 1:38 PM CDT) IRON 69 50 - 170 MCG/DL 09/22/2023 7:55 PM CDT [facility] IRON BINDING CAPACITY 359 250 - 450 MCG/DL 09/22/2023 7:55 PM CDT [facility] IRON SATURATION 19 % 7:55 PM CDT [facility] Comment:REFERENCE RANGE NOT ESTABLISHED 09/22/2023 1:38 PM CDT [facility] Final Resul t Performing Organization Address [facility] Co de Phone Number [address] [phone], * FERRITIN (09/22/2023 1:38 PM CDT) FERRITIN 25.0 8 - 252 NG/ML 09/22/2023 7:55 PM CDT [facility] 09/22/2023 1:38 PM CDT Ofefrancy [facility] Final Resul t Performing Organization Address City/[facility]/ZIP Co de Phone Number [facility] [address] [place] [address], [place] [phone] * (ABNORMAL) CBC W/DIFF AUTOMATED (09/22/2023 1:38 PM CDT) WBC 10.91(H) 4.00 - 10.80 x10'3/uL 09/22/2023 7:22 PM CDT [facility] RBC 4.57 4.10 - 5.40 x10'6/uL 09/22/2023 7:22 PM CDT -[facility] HGB 12.9 12.0 - 16.0 G/DL 09/22/2023 7:22 PM CDT [facility] HCT 40.3 36.0 - 47.0 % 09/22/2023 7:22 PM CDT [facility] [place] MCV 88.2 78.0 - 100.0 FL 09/22/2023 7:22 PM CDT [facility] MCH 28.2 27.0 - 31.0 PG 09/22/2023 7:22 PM CDT [facility] MCHC 32.0(L) 33.0 - 36.0 G/DL 09/22/2023 7:22 PM CDT [facility] RDW 14.1 11.5 - 14.5 % 09/22/2023 7:22 PM CDT [facility] PLT 267 150 - 350 x10'3/uL 09/22/2023 7:22 PM CDT [facility] MPV 12.1(H) 7.4 - 10.4 FL 09/22/2023 7:22 PM T [facility] DIFFERENTIAL TYPE AUTOMATED DIFFERENTIAL 09/22/2023 7:22 PM CDT [facility] NEUTROPHILS % 74.7 % 09/22/2023 7:22 PM CDT [facility] LYMPHOCYTES % 19.4 % 09/22/2023 7:22 PM CDT [facility] MONOCYTES % 4.4 % 09/22/2023 7:22 PM CDT [facility] EOSINOPHILS % 1.1 % 09/22/2023 7:22 PM CDT [facility] [place] BASOPHILS % 0.3 % 09/22/2023 7:22 PM CDT [facility] IMMATURE GRANS % 0.1 % 09/22/2023 7:22 PM CDT -[facility] ABS. NEUTROPHILS 8.15 1.60 - 8.30 x10'3/uL 09/22/2023 7:22 PM CDT -[facility] ABS. LYMPHOCYTES 2.12 0.80 - 4.70 x10'3/uL 09/22/2023 7:22 PM CDT -[facility] ABS. MONOCYTES 0.48 0.00 - 1.50 x10'3/uL 09/22/2023 7:22 PM CDT -[facility] ABS. EOSINOPHILS 0.12 0.00 - 0.40 x10'3/uL 09/22/2023 7:22 PM CDT -[facility] ABS. BASOPHILS 0.03 0.00 - 0.20 x10'3/uL 09/22/2023 7:22 PM CDT -[facility] ABS. IMMATURE GRANULOCYTES 0.01 0.00 - 0.03 x10'3/uL 09/22/2023 7:22 PM CDT -[facility] 09/22/2023 1:38 PM CDT us [facility] Final Resul t -[facility] [address] [place] [address], documented in this encounter Visit Diagnoses Diagnosis Anemia Anemia, unspecified Fatigue Other malaise and fatigue documented in this encounter Care Teams Multimedia Services Manager Relationship Specialty Start Date End Date Ofe Julien APNP [address] [place] [id number] PCP - General NURSE PRACTITIONER 09/24/19 documented as of this encounter
--- OUTSIDE RECORDS SUMMARY | 2024-05-30 13:59 | XMS_ITS | Encounter Summary ---
Author Organization [facility] Address [address] [place] [address]. [place] [address] [place] [address] Care Team Providers Care Yield Loss Inspector Name Role Phone Ofe Julien NORMAN Primary Care Provider [phone] Reason for Visit * Reason Comments Botox * Procedure (Routine) - Closed Specialty Diagnoses / Procedures Referred By Ilia t Referred To Contact Neurology Psychiatry / NEUROLOGY Diagnoses Migraine with aura, not intractable, without status migrainosus Botox Procedures BOTOX Aravind Munguia MD Phone: tel: fax: Aravind Munguia MD [address] [place] [address] Phone: tel: fax: Referral ID Status Reason Start Date Expiration Date Visits Re quested Visits Authorized [id number] Closed 04/09/2022 04/10/2023 2 2 Encounter Details Date Type Department Care Team (Late st Contact Info) Description 04/28/2022 3:35 PM CHANGE MANAGER Office Visit [facility] Multispecialty Care - [facility] [address] [facility], [address] [place] [phone] Aravind Munguia MD [address] [place] [address] Botox Social History Tobacco Use Types Packs/Day Years [...] Coronavirus/COVID-19? No / Unsure 04/28/2022 3:20 PM CHANGE MANAGER documented as of this encounter Last Filed Vital Signs Vital Sign Reading Time Taken Comments Blood Pressure 127/85 04/28/2022 4:19 PM CHANGE MANAGER Pulse 68 04/28/2022 4:19 PM CHANGE MANAGER Temperature 36.7 ??C (98 ??F) 04/28/2022 4:19 PM CHANGE MANAGER Respiratory Rate - - Oxygen Saturation 98% 04/28/2022 4:19 PM CHANGE MANAGER Inhaled Oxygen Concentration - - Weight 64.1 kg (141 lb 4.8 oz) 04/28/2022 3:53 P M CHANGE MANAGER Height 162.6 cm (5' 4 ) 04/28/2022 3:53 PM CHANGE MANAGER Body Mass Index 24.25 04/28/2022 3:53 PM CHANGE MANAGER documented in this encounter Progress Notes * Aravind Munguia MD - 04/28/2022 3:35 PM CST Botox treatment cycle number: 1 Botox side effect: NA Medication effect lasted for: NA Date of procedure: 04/28/2022 Lot type: buy and bill Wastage: 45 Botox Injection Procedure Informed consent: signed by patient. Confirmed: patient, procedure, safety procedures followed. Preparation: no contraindications noted to Botox, sterile preparation of site in usual fashion. Topical lidocaine was applied. Procedure tolerated: well. Complications: none. Indication : Chronic Migraines Interval History: no change in migraines Number of Migraine days: 15/month. She had 7 migraines since her visit on 04/09/22 The patient was explained about the benefits [...] 155 units at 31 different sites. A. Shovel Log Loader Operator : 10 Units divided in 2 [...] sites Patient tolerated the procedure very well. At the end of the procedure she felt a feeling of warmthand lightheadedness, VSS. There is very minimal blood loss during this procedure. There were no immediate post procedure complications. I educated the patient about the nature of the therapy, the usual therapeutic onset of the drug andthe duration of efficacy and also about the common side effects to watch out for. Return to neurology clinic 3 months GE MANAGER documented in this encounter Plan of Treatment Scheduled Orders Name Type Priority Associated Diagnoses Orde r Schedule CHEMODENERVATION MUSCLE INNERVTD, BILAT Procedures Routine Chronic migraine with aura Ordered: 04/28/2022 documented as of this encounter Visit Diagnoses Diagnosis Chronic migraine with aura- Primary documented in this encounter Administered Medications Inactive Administered Medications - up to 3 most recent administrations Medication Order MAR Action Action Date Dose Rate Site botulinum toxin type A (BOTOX) injection 200 Units 200 Units, Intramuscular, Once, 1 dose, On Tue04/28/22 at 1645Indications:Chronic migraine with aura Given 04/28/2022 3:35 PM CHANGE MANAGER 200 Units Other documented in this encounter Care Teams Yield Loss Inspector Relationship Specialty Start Date End Date Ofe Julien APNP [address] [place] [address] PCP - General NURSE PRACTITIONER 09/24/19 documented as of this encounter
--- OUTSIDE RECORDS SUMMARY | 2024-05-30 13:59 | XMS_ITS | Encounter Summary ---
Author Organization [facility] [place] Address [address] [place] [address]. [place] [address] [place] [address] Care Team Providers Care Call Centre Supervisor Name Role Phone Ofe Julien Primary Care Provider [phone] Encounter Details Date Type Department Care Team (Late st Contact Info) Description 09/20/2023 Political Matchmakers Message Enc [facility] Multispecialty Care - [address], [address] [place] [address] [facility] Social History Tobacco Use Types Packs/Day [...] on filedocumented in this encounter Care Teams Call Centre Supervisor Relationship Specialty Start Date End Date Ofe Julien APNP [address] [place] [address] PCP - General NURSE PRACTITIONER 09/24/19 documented as of this encounter
--- OUTSIDE RECORDS SUMMARY | 2024-05-30 13:59 | XMS_ITS | Encounter Summary ---
Author Organization [facility] Address [address] [place] [address]. [place] [address] [place] [address] Care Team Providers Care Client Application Support Engineer Name Role Phone Ofe Julien Primary Care Provider [phone] Encounter Details Date Type Department Care Team (Latest Contact Info) Description 09/22/2023 Travel Social History Tobacco Use Types Packs/Day [...] on filedocumented in this encounter Care Teams Client Application Support Engineer Relationship Specialty Start Date End Date Ofe Julien APNP [address] [place] [address] PCP - General NURSE PRACTITIONER 09/24/19 documented as of this encounter
--- OUTSIDE RECORDS SUMMARY | 2024-05-30 13:59 | XMS_ITS | Encounter Summary ---
Author Organization [facility] Address [address] [place] [address]. [place] [address] [place] [address] Care Team Providers Care Laborer Tree Tapping Name Role Phone Ofe Julien Primary Care Provider [phone] Encounter Details Date Type Department Care Team (Latest Contact Info) Description 03/03/2023 Scan HEALTH INFO SRVCS Scanned, Doc Med [...] on filedocumented in this encounter Care Teams Laborer Tree Tapping Relationship Specialty Start Date End Date Ofe Julien APNP [address] [place] [address] PCP - General NURSE PRACTITIONER 09/24/19 documented as of this encounter
--- OUTSIDE RECORDS SUMMARY | 2024-05-30 13:59 | XMS_ITS | Encounter Summary ---
Author Organization [facility] Address [address] [place] [address]. [place] [address] [place] [address] Care Team Providers Care Hot Roller Name Role Phone Ofe Julien NORMAN Primary Care Provider [phone] Encounter Details Date Type Department Care Team (Late st Contact Info) Description 08/10/2022 Therapy Plan [facility] Multispecialty Care - [facility] [address] [facility], [address] [place] [address] Aravind Munguia MD [address] [place] [address] Social History Tobacco Use Types Packs/Day Years [...] suspected to have Coronavirus/COVID-19? No / Unsure 08/18/2022 1:14 PM CDT documented as of this encounter Progress Notes * Alejandra Mcmillan RN - 08/10/2022 3:12 PM CDTAddended by: ALEJANDRA MCMILLAN on: 10/25/2022 11:26 AM Modules accepted: Orders * Alejandra Mcmillan RN - 08/10/2022 3:12 PM CDTAddended by: ALEJANDRA MCMILLAN on: 12/24/2022 02:51 PM Modules accepted: Orders * Alejandra Mcmillan RN - 08/10/2022 3:12 PM CDTAddended by: ALEJANDRA MCMILLAN on: 05/24/2023 01:51 PM Modules accepted: Orders EXTINGUISHER CHARGER documented in this encounter Plan of Treatment Not on file documented as of this encounter Visit Diagnoses Not on filedocumented in this encounter Care Teams Hot Roller Relationship Specialty Start Date End Date Ofe Julien APNP [address] [place] [address] PCP - General NURSE PRACTITIONER 09/24/19 documented as of this encounter
--- OUTSIDE RECORDS SUMMARY | 2024-05-30 13:59 | XMS_ITS | Encounter Summary ---
Author Organization [facility] Address [address] [place] [address]. [place] [address] [place] [address] Care Team Providers Care Psychologist Educational Name Role Phone Ofe Julien Primary Care Provider +1 [phone] Encounter Details Date Type Department Care Team (Latest Contact Info) Description 08/18/2022 Scan HEALTH INFO SRVCS Scanned, Doc Med [...] PM CDT documented as of this encounter Plan of Treatment Not on file documented as of this encounter Visit Diagnoses Not on filedocumented in this encounter Care Teams Psychologist Educational Relationship Specialty Start Date End Date Ofe Julien APNP [address] [place] [address] PCP - General NURSE PRACTITIONER 09/24/19 documented as of this encounter
--- OUTSIDE RECORDS SUMMARY | 2024-05-30 13:59 | XMS_ITS | Encounter Summary ---
Author Organization [facility] Address [address] [place] [address]. [place] [address] [place] [address] Care Team Providers Care Boarder Hand Name Role Phone Ofe Julien Melania AUSTIN Primary Care Provider [phone] Reason for Referral * Imaging (Routine) - New Request Specialty Diagnoses / Procedures Referred By Contac t Referred To Contact RADIOLOGY Diagnoses Cerebral aneurysm (HHS/HCC) Procedures MRA HEAD WO Lucius Gaines MD [address] [place] [address] Phone: tel: fax: Referral ID Status Reason Start Date Expiration Date V isits Requested Visits Authorized [id number] New Request 10/19/2023 10/18/2024 1 1 * Imaging (Routine) - New Request Specialty Diagnoses / Procedures Referred By Contac t Referred To Contact RADIOLOGY Diagnoses Dural venous sinus thrombosis (HHS/HCC) Procedures MRV HEAD WO Lucius Jacques MD [address] [place] [address] Phone: tel: fax: Referral ID Status Reason Start Date Expiration Date V isits Requested Visits Authorized [id number] New Request 10/19/2023 10/18/2024 1 1 * Imaging (Routine) - New Request Specialty Diagnoses / Procedures Referred By Ilia hernandez Referred To Contact RADIOLOGY Diagnoses Nocturnal headaches Procedures MRI BRAIN WO CON Lucius Jacques MD [address] [place] [address] Phone: tel: fax: Referral ID Status Reason Start Date Expiration Date V isits Requested Visits Authorized [id number] New Request 10/19/2023 10/18/2024 1 1 Reason for Visit * Reason Onset Date Comments Question 10/19/2023 Encounter Details Date Type Department Care Team (Late st Contact Info) Description 10/19/2023 Telephone [facility] Neurology Speciality [facility] - [address] [place] [address] Lucius Jacques MD [address] [place] [address] Question Social History Tobacco Use Types [...] as of this encounter Progress Notes * Lucius Jacques MD - 10/19/2023 1:01 PM CDTAddended by: LUCIUS JACQUES on: 10/19/2023 01:01 PM Modules accepted: Orders * Radha Gaines - 10/19/2023 9:52 AM CDT Please call her work number to schedule in November. Thanks! [phone] Work Number * Liza Ling - 10/19/2023 9:20 AM CDT Patient returning office call * Radha Gaines - 10/19/2023 8:10 AM CDT Patient is looking for an alternative for Botox since she has become newly . Her migraines have been super extreme and cannot find relief. Can she please get a call back as she is looking fora solution. Work today until 4:30, call this [phone] documented in this encounter Plan of Treatment Scheduled Orders Name Type Priority Associated Diagnoses Orde r Schedule MRI BRAIN WO CON MRI Routine Nocturnal headaches Expected: 10/19/2023, Expires: 10/18/2024 MRV HEAD WO MRI Routine Dural venous sinus thrombosis (HHS/HCC) Expected: 10/19/2023, Expires: 10/18/2024 MRA HEAD WO CON MRI Routine Cerebral aneurysm (HHS/HCC) Expected: 10/19/2023, Expires: 10/18/2024 documented as of this encounter Visit Diagnoses Diagnosis Nocturnal headaches- Primary Headache Cerebral aneurysm (HHS/HCC) Cerebral aneurysm, nonruptured Dural venous sinus thrombosis (HHS/HCC) Phlebitis and thrombophlebitis of intracranial venous sinuses documented in this encounter Care Teams Boarder Hand Relationship Specialty Start Date End Date Ofe Julien APNP [address] [place] [address] PCP - General NURSE PRACTITIONER 09/24/19 documented as of this encounter
--- OUTSIDE RECORDS SUMMARY | 2024-05-30 13:59 | XMS_ITS | Encounter Summary ---
Author Organization [facility] Address [address] [place] [address]. [place] [address] [place] [address] Care Team Providers Care District Fire Chief Name Role Phone Ofe Julien NORMAN Primary Care Provider Reason for Visit * Reason Onset Date Comments Reschedule 06/08/2023 Encounter Details Date Type Department Care Team (Late st Contact Info) Description 06/08/2023 Telephone [facility] - [address] [place] [address] Lucius Jacques MD [address] [place] [address] [phone] Reschedule Social History Tobacco Use Types Packs/Day Years [...] of this encounter Progress Notes * Alejandra Perry RN - 06/08/2023 9:37 AM CST Spoke with patient to reschedule her botox on 06/09/23. Patient had a change of insurance and her secondary insurance has not yet approved. Patient moved to 06/22/23 at 1140. EON CHIEF documented in this encounter Plan of Treatment Not on file documented as of this encounter Visit Diagnoses Not on filedocumented in this encounter Care Teams District Fire Chief Relationship Specialty Start Date End Date Ofe Julien APNP [address] [place] [address] PCP - General NURSE PRACTITIONER 09/24/19 documented as of this encounter
--- OUTSIDE RECORDS SUMMARY | 2024-05-30 13:59 | XMS_ITS | Encounter Summary ---
Author Organization [facility] Address [address] [place] [address]. [place] [address] [place] [address] Care Team Providers Care Counter Help Name Role Phone Ofe Julien Primary Care Provider [phone] Encounter Details Date Type Department Care Team (Latest Contact Info) Description 06/22/2023 Travel Social History Tobacco Use Types Packs/Day [...] on filedocumented in this encounter Care Teams Counter Help Relationship Specialty Start Date End Date Ofe Julien APNP [address] [place] [address] PCP - General NURSE PRACTITIONER 09/24/19 documented as of this encounter
--- OUTSIDE RECORDS SUMMARY | 2024-05-30 13:59 | XMS_ITS | Encounter Summary ---
Author Organization [facility] Address [address] [place] [address]. [place] [address] [place] [address] Care Team Providers Care Tanning Salon Attendant Name Role Phone Ofe Julien Melania AUSTIN Primary Care Provider [phone] Reason for Visit * Reason Comments Follow Up Botox * Treatment/Therapy Plan Authorization (Routine) - Closed Specialty Diagnoses / Procedures Referred By Ilia t Referred To Contact Diagnoses Migraine with aura Procedures BOTULINUM TOXIN A PER UNIT Chad Navarrete MD [address] [place] [address] Phone: tel: fax: [facility] - [address], [address] [place] [phone] Phone: tel: Referral ID Status Reason Start Date Expiration Date Visits Re quested Visits Authorized [id number] Closed 04/12/2022 1 1 Encounter Details Date Type Department Care Team (Latest Contact Info) Description 08/18/2022 1:20 PM CDT Office Visit [address], [address] [place] [address] Chad Navarrete MD [address] [place] [address] Follow Up (Botox ) Social History Tobacco Use Types Packs/Day Years [...] Recorded In the last 10 days, have gely u been in contact with someone who was confirmed or suspected to have Coronavirus/COVID-19? No / Unsure 08/18/2022 1:14 PM CDT documented as of this encounter Last Filed Vital Signs Vital Sign Reading Time Taken Comments Blood Pressure 124/72 08/18/2022 1:21 PM CDT Pulse 80 08/18/2022 1:21 PM CDT Temperature 37.1 ??C (98.8 ??F) 08/18/2022 1:21 PM CD T Respiratory Rate - - Oxygen Saturation 100% 08/18/2022 1:21 PM CDT Inhaled Oxygen Concentration - - Weight 67 kg (147 lb 9.6 oz) 08/18/2022 1:21 PM CDT Height 162.6 cm (5' 4 ) 08/18/2022 1:21 PM CDT Body Mass Index 25.34 08/18/2022 1:21 PM CDT documented in this encounter Progress Notes * Chad Navarrete MD - 08/18/2022 1:20 PM CDTAddended by: CHAD NAVARRETE on: 08/20/2022 07:58 AM Modules accepted: Orders * Chad Navarrete MD - 08/18/2022 1:20 PM CDT Botox treatment cycle number: 2 Botox side effect: NA Medication effect lasted for: 12 weeks Date of procedure: 08/18/2022 Lot type: [id number] Wastage: 45 Botox Injection Procedure Informed consent: signed by patient. Confirmed: patient, procedure, safety procedures followed. Preparation: no contraindications noted to Botox, sterile preparation of site in usual fashion. Procedure tolerated: well. Complications: none. Indication : Chronic Migraines Interval History: Her migraines transitioned from chronic to episodic. Number of Migraine days: 2 The patient was explained about the benefits [...] 155 units at 31 different sites. A. Stocking And Box Shop Supervisor : 10 Units divided in 2 sites [...] for. Return to neurology clinic 3 months documented in this encounter Plan of Treatment Scheduled Orders Name Type Priority Associated Diagnoses Orde r Schedule CHEMODENERVATION MUSCLE INNERVTD, BILAT Procedures Routine Chronic migraine with aura Ordered: 08/18/2022 documented as of this encounter Visit Diagnoses Diagnosis Chronic migraine with aura- Primary Intractable migraine with aura without status migrainosus Migraine with aura, with intractable migraine, so stated, without mention of status migrainosus documented in this encounter Administered Medications Inactive Administered Medications - up to 3 most recent administrations Medication Order MAR Action Action Date Dose Rate Site botulinum toxin type A (BOTOX) injection 200 Units 200 Units, Intramuscular, Once, 1 dose, On Tue08/20/22 at 0815Indications:Chronic migraine with aura Given 08/18/2022 1:20 PM CDT 200 Units Other documented in this encounter Care Teams Tanning Salon Attendant Relationship Specialty Start Date End Date Ofe Julien APNP [address] [place] [address] PCP - General NURSE PRACTITIONER 09/24/19 documented as of this encounter
--- OUTSIDE RECORDS SUMMARY | 2024-05-30 13:59 | XMS_ITS | Encounter Summary ---
Author Organization [facility] Address [address] [place] [address]. [place] [address] [place] [address] Care Team Providers Care Easement Man Name Role Phone Ofe Julien Melania AUSTIN Primary Care Provider [phone] Reason for Visit * Reason Comments Procedure botox * Treatment/Therapy Plan Authorization (Routine) - Closed Specialty Diagnoses / Procedures Referred By Ilia t Referred To Contact Diagnoses Intractable migraine with aura without status migrainosus Procedures BOTULINUM TOXIN A PER UNIT Lucius Jacques MD [address] [place] [address] Phone: tel: fax: [facility] - [address], [address] [place] [phone] Phone: tel: Referral ID Status Reason Start Date Expiration Date Visits Re quested Visits Authorized [id number] Closed 02/24/2023 02/24/2024 4 4 Encounter Details Date Type Department Care Team (Latest Contact Info) Description 03/03/2023 11:20 AM CDT [facility] - [address], [address] [place] [phone] Lucius Jacques MD [address] [place] [address] Procedure (botox) Social History Tobacco Use Types Packs/Day Years [...] Sign Reading Time Taken Comments Blood Pressure 108/77 03/03/2023 11:22 AM CDT Pulse 68 03/03/2023 11:22 AM CDT Temperature 37.1 ??C (98.7 ??F) 03/03/2023 11:22 AM C DT Respiratory Rate 16 03/03/2023 11:22 AM CDT Oxygen Saturation 100% 03/03/2023 11:22 AM CDT Inhaled Oxygen Concentration - - Weight 64.9 kg (143 lb) 03/03/2023 11:22 AM CDT Height 162.6 cm (5' 4 ) 03/03/2023 11:22 AM CDT Body Mass Index 24.55 03/03/2023 11:22 AM CDT documented in this encounter Progress Notes * Alejandra Mcmillan RN - 03/03/2023 11:20 AM CDTAddended by: ALEJANDRA MCMILLAN on: 03/07/2023 08:53 AM Modules accepted: Orders * Lucius Jacques MD - 03/03/2023 11:20 AM CDT Botox treatment cycle number: 4 Lot type: buy and bill Wastage: 45 [...] 155 units at 31 different sites. A. Mailroom Personnel : 10 Units divided in 2 sites [...] aura w/o status migrainosus, not intractable Ordered: 03/05/2023 documented as of this encounter Visit Diagnoses Diagnosis Chronic migraine w/o aura w/o status migrainosus, not intractable- Primary Chronic migraine without aura, without mention of intractable migraine without mention of status migrainosus Intractable migraine with aura without status migrainosus Migraine with aura, with intractable migraine, so stated, without mention of status migrainosus documented in this encounter Administered Medications Inactive Administered Medications - up to 3 most recent administrations Medication Order MAR Action Action Date Dose Rate Site botulinum toxin type A (BOTOX) injection 155 Units 155 Units, Intramuscular, Once, 1 dose, On 03/07/23 at 0915, * 200 unit vial *Indications:Intractable migraine with aura without status migrainosus Given 03/03/2023 11:20 AM CDT 155 Units Other documented in this encounter Care Teams Easement Man Relationship Specialty Start Date End Date Ofe Julien APNP [address] [place], [place] [phone] PCP - General NURSE PRACTITIONER 09/24/19 documented as of this encounter
--- OUTSIDE RECORDS SUMMARY | 2024-05-30 13:59 | XMS_ITS | Encounter Summary ---
Author Organization [facility] Address [address] [place] [address]. [place] [address] [place] [address] Care Team Providers Care Schedule Announcer Name Role Phone Ofe Julien Primary Care Provider [phone] Encounter Details Date Type Department Care Team (Latest Contact Info) Description 06/22/2023 Scan HEALTH INFO SRVCS Scanned, Doc Med [...] on filedocumented in this encounter Care Teams Schedule Announcer Relationship Specialty Start Date End Date Ofe Julien APNP [address] [place] [address] PCP - General NURSE PRACTITIONER 09/24/19 documented as of this encounter
--- OUTSIDE RECORDS SUMMARY | 2024-05-30 13:59 | XMS_ITS | Encounter Summary ---
Author Organization [facility] Address [address] [place] [address]. [place] [address] [place] [address] Care Team Providers Care Environmental Health And Safety Manager Name Role Phone Ofe Julien Primary Care Provider [phone] Reason for Visit * Reason Comments Follow Up * Consultation/Treatment (Routine) - Closed Specialty Diagnoses / Procedures Referred By Ilia hernandez Referred To Contact NEUROLOGY Diagnoses Intractable migraine without aura and without status migrainosus Procedures OFFICE/OUTPT VISIT,NEW,LEVL III OFFICE/OUTPT VISIT,NEW,LEVL IV OFFICE/OUTPT VISIT,NEW,LEVL V OFFICE/OUTPT VISIT,EST,LEVL III OFFICE/OUTPT VISIT,EST,LEVL IV OFFICE/OUTPT VISIT,EST,LEVL V Ofe Julien APNP [address] [place] [address] Phone: tel: fax: Lucius Jacques MD [address] [place] [address] Phone: tel: fax: Referral ID Status Reason Start Date Expiration Date V isits Requested Visits Authorized [id number] Closed Specialty Services 01/26/2022 02/26/2023 100 100 Encounter Details Date Type Department Care Team (Late st Contact Info) Description 08/09/2022 11:20 AM CDT Office Visit [facility] Multispecialty Care - [address], [address] [place] [phone] Aravind Munguia MD [address] [place] [address] Follow Up Social History Tobacco Use Types Packs/Day Years [...] AM CDT documented as of this encounter Last Filed Vital Signs Vital Sign Reading Time Taken Comments Blood Pressure 109/74 08/09/2022 11:30 AM CDT Pulse 88 08/09/2022 11:30 AM CDT Temperature 37 ??C (98.6 ??F) 08/09/2022 11:30 AM CDT Respiratory Rate - - Oxygen Saturation 99% 08/09/2022 11:30 AM CDT Inhaled Oxygen Concentration - - Weight 67.6 kg (149 lb) 08/09/2022 11:30 AM CDT Height 162.6 cm (5' 4 ) 08/09/2022 11:30 AM CDT Body Mass Index 25.58 08/09/2022 11:30 AM CDT documented in this encounter Progress Notes * Aravind Munguia MD - 08/09/2022 11:20 AM CDT Neurology Clinic [facility] - [address] [facility] [address] Dept: [phone] Name: Pushpa Alvarado Date of : 2000 PCP: NORMAN Mcconnell Date: 08/09/2022 Chief Complaint: Migraines History of Present Illness: Pushpa Alvarado is a 21-year-old female with a past medical history significant for migraines whowas referred by NORMAN Mcconnell to the Neurology Clinic for evaluation of migraines. They were last seen by me in clinic on 04/09/2022 and the plan was as follows: #Chronic migraines - Start propranolol 10 mg twice daily - Trial of Maxalt 5 mg to take at the start of a migraine - Can continue eletriptan as prescribed that is more effective than Maxalt - Counseled on lifestyle modification - Start Botox 155 units every 12 weeks for 12 months She had a first session of Botox in April 2022. She had a significant prevent of her migraines since she had her first session of Botox. She is pending repeat Botox next week. Since April she had 6 of her typical migraines. She has had 5 tension type headaches. This is a significant improvement from 15 migraine headache days per month. She tried Maxalt and Eletriptan and she thinks that Eletriptan we more effective. She stopped propranolol. This was ineffective. Initial History: She reports having a longstanding history of migraine headaches which began when she was in third grade. She describes them as being occipital, pressure and throbbing sensation. Will initially start with pain in the back of her neck which then progresses into pain in the occiput. The pain is severeand is associated with photophobia, phonophobia, nausea and vomiting. She will occasionally have anaura of black spots in her central vision lasting 20 minutes prior to her migraine headaches. She does not experience any numbness, tingling or focal weakness. Her headaches are not positional. They are not made worse with Valsalva. They occur on average 2-3 times per week and last between 4 and 48hours. She estimates that she has 15 days without any migraine or headache symptoms. She has not been on any prophylactic treatments. She gets regular vocational childcare teacher which occasionally helps her symptoms. She has tried Nurtec which is ineffective. She is currently on Eletriptan which sometimes relieves her symptoms. She occasionally drinks caffeine. She has variable sleep quality, she drinks lots of water. MRI performed in 2019 was read as normal. Current Outpatient Medications Medication Sig Dispense Refill ??? medroxyPROGESTERone injection ??? rizatriptan (MAXALT) 5 MG tablet Take 1 tablet (5 mg total) by mouth 2 (two) times daily as needed for Migraine. May repeat in 2 hours if needed times one dose 10 tablet 5 ??? eletriptan 40 MG tablet Take 1 tablet (40 mg total) by mouth as needed. may repeat in 2 hours if necessary (Patient not taking: Reported on 08/09/2022) 90 tablet 3 ??? propranolol (INDERAL) 10 MG tablet Take 1 tablet (10 mg total) by mouth 2 (two) times daily. (Patient not taking: Reported on 08/09/2022) 60 tablet 5 No current facility-administered medications for this visit. No past medical history on file. Past Surgical History: Procedure Laterality Date ??? NAIL REMOVAL ??? ORAL SURGERY PROCEDURE [place] teeth Family History Problem Relation Name Age of Onset ??? Cancer Paternal Grandmother breast Social History Tobacco Use ??? Smoking status: Never ??? Smokeless tobacco: Never Vaping Use ??? Vaping Use: Never used Substance Use Topics ??? Alcohol use: Yes Alcohol/week: 3.3 standard drinks Types: 2 Glasses of wine per week Comment: 2 drinks twice a week ??? Drug use: Yes Frequency: 7.0 times per week Types: Marijuana Comment: marijuana gummies and inhalents 7 days a week Review of Systems Eyes: Positive for blurred vision. Musculoskeletal: Positive for neck pain. Neurological: Positive for headaches. Negative for dizziness, tingling, tremors, sensory change, speech change, focal weakness, seizures, loss of consciousness and weakness. Filed Vitals: 08/09/22 1130 BP: 109/74 Pulse: 88 Temp: 98.6 ??F (37 ??C) TempSrc: Temporal SpO2: 99% Weight: 67.6 kg (149 lb) Height: 5' 4 (1.626 m) GENERAL EXAMINATION Patient is in no apparent distress, cooperates with examination. HEAD: normocephalic, atraumatic EYES: normal. EARS, NOSE AND THROAT: normal, no lesions or exudates. NECK: supple CHEST: breathing comfortably CARDIOVASCULAR: regular rate and rhythm GI: non distended EXTREMITIES: no clubbing, edema or cyanosis. MUSCULOSKELETAL: no contractures NEUROLOGY EXAMINATION MENTAL STATUS: Patient was alert, awake and oriented x3, regards and follows commands. Normal language. CRANIAL NERVES: II: Visual mendez were full. Fundoscopic exam was normal. Pupils were equal, round and reactive to light. III, IV, : normal extraocular movements, no nystagmus. No eyelid ptosis. V: Normal jaw closure and opening. Facial sensation was intact in V1-3 VII: face was symmetric. Eye closure and lip closure were normal. VIII: hearing was normal. IX-X: palate elevates at midline. XI: normal symmetric shoulder shrug. Normal 5/5 sternocleidomastoid strength. XII: tongue was midline and strong. No fasciculations. MOTOR: Normal strength 5/5 on MRC scale in the upper and lower extremities. Normal muscle tone. Fine finger movements were normal bilaterally. No pronator drift. SENSATION: Light touch intact. REFLEXES: 2+/4 in bilateral patella COORDINATION: Absent dysmetria on finger -nose -finger. No tremor. GAIT: Normal stride and base. Imaging and Pertinent Labs: See HPI Impression: Pushpa Alvarado is a 21-year-old female with a past medical history significant for migraines whowas referred to the Neurology Clinic for evaluation of migraines. Her chronic migraines have transitioned into episodic migraines. She tolerated Botox without side effects. Propranolol was ineffective. We will continue Botox monotherapy for prophylaxis. She can continue use of Eletriptan for breakthrough Plan: #Chronic migraines that has transitioned to episodic migraine - Stop propranolol 10 mg twice daily -Start Maxalt - Continue eletriptan 40 mg twice daily as needed - Continue Botox 155 units every 12 weeks for 12 months Return to clinic for next available for Botox Follow-up 9 months later Aravind Munguia MD I spent 25 minutes today reviewing the patient's medical record, obtaining history, performing an exam, ordering medications, tests, and/or procedures, documenting in the medical record, counseling and educating the patient, reviewing and communicating test results and coordinating care. documented in this encounter Plan of Treatment Not on file documented as of this encounter Visit Diagnoses Diagnosis Intractable migraine without aura and without status migrainosus Migraine without aura, with intractable migraine, so stated, without mention of status migrainosus documented in this encounter Care Teams Environmental Health And Safety Manager Relationship Specialty Start Date End Date Ofe Julien APNP [address] [place] [address] PCP - General NURSE PRACTITIONER 09/24/19 documented as of this encounter
--- OUTSIDE RECORDS SUMMARY | 2024-05-30 13:59 | XMS_ITS | Encounter Summary ---
Author Organization [facility] Address [address] [place] [address]. [place] [address] [place] [address] Care Team Providers Care Grape Cutter Name Role Phone Ofe Julien Primary Care Provider [phone] Encounter Details Date Type Department Care Team (Late st Contact Info) Description 05/24/2023 Therapy Plan [facility] Neurology Speciality Clinic - [address] [place] [address] Lucius Jacques MD [address] [place] [address] Social History Tobacco Use Types Packs/Day Years [...] on filedocumented in this encounter Care Teams Grape Cutter Relationship Specialty Start Date End Date Ofe Julien APNP [address] [place] [address] PCP - General NURSE PRACTITIONER 09/24/19 documented as of this encounter
--- OUTSIDE RECORDS SUMMARY | 2024-05-30 13:59 | XMS_ITS | Encounter Summary ---
Author Organization [facility] Address [address] [place] [address]. [place] [address] [place] [address] Care Team Providers Care Orthotist Name Role Phone Ofe Julien Primary Care Provider [phone] Reason for Visit * Reason Onset Date Comments Lab Results 09/28/2023 Encounter Details Date Type Department Care Team (Late st Contact Info) Description 09/28/2023 Telephone [facility] Family & Internal [facility] [address] [place] [address] Ofe Julien APNP [facility] [place] [address] Lab Results Social History Tobacco [...] Progress Notes * Linda Lechuga MA - 09/28/2023 9:44 AM CDT Speed Dating by Chantilly Lace message sent to pt. ----- Message from NORMAN Mcconnell sent at 09/27/2023 8:44 AM CDT ----- WBC sl elevated---no alarm at this time Can recheck in a month Ferritin and iron WNL documented in this encounter Plan of Treatment Not on file documented as of this encounter Visit Diagnoses Not on filedocumented in this encounter Care Teams Orthotist Relationship Specialty Start Date End Date Ofe Juilen APNP [address] [place] [address] PCP - General NURSE PRACTITIONER 09/24/19 documented as of this encounter
--- OUTSIDE RECORDS SUMMARY | 2024-05-30 13:59 | XMS_ITS | Encounter Summary ---
Author Organization [facility] Address [address] [place] [address]. [place] [address] [place] [address] Care Team Providers Care Site Head Name Role Phone Ofe Julien Primary Care Provider [phone] Encounter Details Date Type Department Care Team (Latest Contact Info) Description 08/18/2022 Travel Social History Tobacco Use Types Packs/Day [...] on filedocumented in this encounter Care Teams Site Head Relationship Specialty Start Date End Date Ofe Julien APNP [address] [place] [address] PCP - General NURSE PRACTITIONER 09/24/19 documented as of this encounter
--- OUTSIDE RECORDS SUMMARY | 2024-05-30 13:59 | XMS_ITS | Encounter Summary ---
Author Organization [facility] Address [address] [place] [address]. [place] [address] [place] [address] Care Team Providers Care Operations And Maintenance Technican Name Role Phone Ced Julien Primary Care Provider [phone] [phone] Reason for Visit * Reason Comments Physical Encounter Details Date Type Department Care Team (Late st Contact Info) Description 06/17/2023 8:20 AM WOOD CARVING LATHE OPERATOR Office Visit [facility] Family & Internal Medicine [address] [phone] Ced Julien APNP [address] [place] [id number] Physical Social History Tobacco Use Types Packs/Day Years [...] Sign Reading Time Taken Comments Blood Pressure 110/64 06/17/2023 8:29 AM WOOD CARVING LATHE OPERATOR Pulse 84 06/17/2023 8:29 AM WOOD CARVING LATHE OPERATOR Temperature 36.7 ??C (98.1 ??F) 06/17/2023 8:29 AM CS T Respiratory Rate 16 06/17/2023 8:29 AM WOOD CARVING LATHE OPERATOR Oxygen Saturation 98% 06/17/2023 8:29 AM WOOD CARVING LATHE OPERATOR Inhaled Oxygen Concentration - - Weight 61.6 kg (135 lb 12.8 oz) 06/17/2023 8:29 AM WOOD CARVING LATHE OPERATOR Height 162.6 cm (5' 4 ) 06/17/2023 8:29 AM WOOD CARVING LATHE OPERATOR Body Mass Index 23.31 06/17/2023 8:29 AM WOOD CARVING LATHE OPERATOR documented in this encounter Progress Notes * NORMAN Mcconnell - 06/17/2023 8:20 AM CSTAddended by: CED JULIEN on: 06/17/2023 08:59 AM Modules accepted: Orders CARVING LATHE OPERATOR * NORMAN Mcconnell - 06/17/2023 8:20 AM CST Images from the original note were not included. [facility] OFFICE VISIT Reason for Visit: Physical History of Present Illness: The patient is being seen for a health maintenance evaluation. General Health: good Dental Health: Sees dentist regularly Vision Health: No vision correction, had recent eye exam and recently had Lasik Hearing Health: No hearing problems Immunizations Needed: Influenza and COVID---pt declines Weight BMI 23 Physical Activity: Excercises occaisonally Cervical Cancer Screening: up to date, sees [facility] Metabolic Screening: Patient needs to be screened today. PHQ-9 Screening Score: 0 Smoking Status: Smoking status:NeverSmokeless tobacco:Never She denies any issues with anxiety/depression. Chronic health conditions: Migraine - sees neurology, currently on triptan. Feels symptoms are controlled. Maria Luisa meds well. She has no new complaints or concerns. ROS: Review of Systems Constitutional: Negative for chills and fever. HENT: Negative for congestion. Eyes: Negative for blurred vision and double vision. Respiratory: Negative for cough and shortness of breath. Cardiovascular: Negative for chest pain and palpitations. Gastrointestinal: Negative for abdominal pain, diarrhea, nausea and vomiting. Musculoskeletal: Negative for myalgias. Neurological: Negative for dizziness and headaches. Psychiatric/Behavioral: Negative for depression. The patient is not nervous/anxious. Medications: Current Outpatient Medications: eletriptan (RELPAX) 40 MG tablet, Take 1 tablet (40 mg total) by mouth as needed. may repeat in 2 hours if necessary, Disp: 27 tablet, Rfl: 3 OnabotulinumtoxinA (BOTOX IJ), Indications: Migraine Headache, Disp: , Rfl: Allergies: Review of patient's allergies indicates: No Known Allergies Medical History: History reviewed. No pertinent past medical history. Surgical History: Past Surgical History: Procedure Laterality Date EYE SURGERY 02/18/2023 Lasik NAIL REMOVAL ORAL SURGERY PROCEDURE [place] teeth Social History: Social History Socioeconomic History Marital status: Single Tobacco Use Smoking status: Never Smokeless tobacco: Never Vaping Use Vaping Use: Never used Substance and Sexual Activity Alcohol use: Yes Alcohol/week: 3.3 standard drinks of alcohol Types: 2 Glasses of wine per week Comment: 2 drinks twice a week Drug use: Yes Frequency: 7.0 times per week Types: Marijuana Comment: marijuana gummies and inhalents 7 days a week Sexual activity: Yes Partners: Male control/protection: None Family History: Family History Problem Relation Name Age of Onset Cancer Paternal Grandmother Erica Breast cancer Arthritis Mother Darlene PE: Physical Exam Vitals and nursing note reviewed. HENT: Head: Normocephalic and atraumatic. Right Ear: Tympanic membrane normal. Left Ear: Tympanic membrane normal. Mouth/Throat: Mouth: Mucous membranes are moist. Pharynx: No posterior oropharyngeal erythema. Eyes: General: No scleral icterus. Conjunctiva/sclera: Conjunctivae normal. Neck: Trachea: No tracheal deviation. Cardiovascular: Rate and Rhythm: Normal rate and regular rhythm. Heart sounds: Normal heart sounds. No murmur heard. Pulmonary: Effort: Pulmonary effort is normal. No respiratory distress. Breath sounds: Normal breath sounds. No stridor. No wheezing. Abdominal: General: Bowel sounds are normal. There is no distension. Palpations: Abdomen is soft. There is no mass. Tenderness: There is no abdominal tenderness. There is no guarding or rebound. Musculoskeletal: General: No deformity. Normal range of motion. Cervical back: Normal range of motion and neck supple. Skin: General: Skin is warm and dry. Findings: No erythema. Neurological: Mental Status: She is alert and oriented to person, place, and time. Gait: Gait is intact. Psychiatric: Mood and Affect: Mood and affect normal. Filed Vitals: 06/17/23 0829 BP: 110/64 Pulse: 84 Resp: 16 Temp: 98.1 ??F (36.7 ??C) TempSrc: Skin SpO2: 98% Weight: 61.6 kg (135 lb 12.8 oz) Height: 1.626 m (5' 4 ) Labs: Labs Reviewed Diagnoses/Impression: 1. General medical exam CBC W/DIFF AUTOMATED LIPID PANEL TSH W/REFLEX COMPREHENSIVE METABOLIC PANEL VENIPUNC ARM DRAW 2. Chronic migraine without aura without status migrainosus, not intractable 3. Need for hepatitis C screening test HEPATITIS C AB ([facility] ONLY) VENIPUNC ARM DRAW Recommendations and Plan: 1. General medical exam - CBC W/DIFF AUTOMATED; Future - LIPID PANEL; Future - TSH W/REFLEX; Future - COMPREHENSIVE METABOLIC PANEL; Future - VENIPUNC ARM DRAW Doing well. Will continue to discuss breast cancer screening and screen per patient preference and guidelines. Self-breast exams are a level D recommendation by the USPSTF. Follow up with PCM if any abnormalities are noted. Mammograms should continue annually. Reviewed with the patient BMI, blood pr essure, diet, exercise, and encouraged healthy lifestyle choices. I recommended weight-bearing exercise to decrease risks of osteoporosis. Screened for substance use, risk factors for STIs, diet and exercise habits, and symptoms of depression. Colon screening starting at 45. Recommended preventive immunizations according to age. 2. Chronic migraine without aura without status migrainosus, not intractable Symptoms are stable and she will continue follow up with neuro. 3. Need for hepatitis C screening test - HEPATITIS C AB ([facility] ONLY); Future - VENIPUNC ARM DRAW Shared decision making Orders Placed This Encounter VENIPUNC ARM DRAW CBC W/DIFF AUTOMATED LIPID PANEL TSH W/REFLEX COMPREHENSIVE METABOLIC PANEL HEPATITIS C AB ([facility] ONLY) OnabotulinumtoxinA (BOTOX IJ) Cannot display discharge medications since this is not an admission. PCP: NORMAN Mcconnell 06/17/2023 CARVING LATHE OPERATOR CARVING LATHE OPERATOR documented in this encounter Plan of Treatment Not on file documented as of this encounter Procedures Procedure Name Priority Date/Time Associated Diagnosis Comments TSH W/REFLEX Routine 06/17/2023 9:11 AM WOOD CARVING LATHE OPERATOR General medical exam COMPREHENSIVE METABOLIC PANEL Routine 06/17/2023 9:11 AM WOOD CARVING LATHE OPERATOR General medical exam LIPID PANEL Routine 06/17/2023 9:11 AM WOOD CARVING LATHE OPERATOR General medical exam HEPATITIS C ANTIBODY Routine 06/17/2023 9:11 AM WOOD CARVING LATHE OPERATOR Need for hepatitis C screening test CBC W/DIFF AUTOMATED Routine 06/17/2023 9:11 AM WOOD CARVING LATHE OPERATOR General medical exam COLLECTION VENOUS BLOOD VENIPUNCTURE Routine 06/17/2023 8:56 AM WOOD CARVING LATHE OPERATOR General medical exam Need for hepatitis C screening test documented in this encounter Results * HEPATITIS C AB ([facility] ONLY) (06/17/2023 9:11 AM WOOD CARVING LATHE OPERATOR) HEPATITIS C AB NON-REACTI VE NON-REACT LEONARDO 06/17/2023 6:49 PM WOOD CARVING LATHE OPERATOR [facility] Comment: ANTIBODIES TO HCV NOT DETECTED. DOES NOT EXCLUDE THE POSSIBILITY OF EXPOSURE TO HCV. 06/17/2023 9:11 AM WOOD CARVING LATHE OPERATOR us [facility] Final Resul t [facility] [address] [place] [address], [phone] * (ABNORMAL) COMPREHENSIVE METABOLIC PANEL (06/17/2023 9:11 AM WOOD CARVING LATHE OPERATOR) SODIUM S/P/B 140 136 - 145 MMOL/L 06/17/2023 4:04 PM WOOD CARVING LATHE OPERATOR [facility] POTASSIUM S/P/B 4.4 3.5 - 5.1 MMOL/L 06/17/2023 4:04 PM WOOD CARVING LATHE OPERATOR [facility] CHLORIDE S/P/B 104 98 - 107 MMOL/L 06/17/2023 4:04 PM [facility] CO2 25.1 21 - 32 MMOL/L 06/17/2023 4:04 PM [facility] GLUCOSE 87 70 - 99 MG/DL 06/17/2023 4:04 PM [facility] BUN 10 7 - 18 MG/DL 06/17/2023 4:04 PM [facility] CREATININE S/P/B 0.67 0.55 - 1.02 MG/DL 06/17/2023 4:04 PM [facility] CALCIUM S/P/B 9.3 8.4 - 10.5 MG/DL 06/17/2023 4:04 PM [facility] BILIRUBIN TOTAL S/P/B 0.3 0.2 - 1.0 MG/DL 06/17/2023 4:04 PM [facility] ALKALINE PHOSPHATASE S/P/B 58 52 - 144 U/L 06/17/2023 4:04 PM [facility] AST 13(L) 15 - 37 U/L 06/17/2023 4:04 PM [facility] ALT 19 14 - 59 U/L 06/17/2023 4:04 PM [facility] TOTAL PROTEIN S/P/B 7.5 6.4 - 8.2 G/DL 06/17/2023 4:04 PM [facility] ALBUMIN S/P/B 3.7 3.4 - 5.0 G/DL 06/17/2023 4:04 PM [facility] ANION GAP 10.9 5 - 15 MMOL/L 06/17/2023 4:04 PM [facility] Comment:REFERENCE RANGE NOT ESTABLISHED OSMOLALITY (CALC) 288 MOSM/KG 024 4:04 PM [facility] Comment:REFERENCE RANGE NOT ESTABLISHED GFR ESTIMATE >90 >90 ML/MIN/1. 73 M2 06/17/2023 4:04 PM WOOD CARVING LATHE OPERATOR [facility] GFR NOTES GFR REFERENCE S: 06/17/2023 4:04 PM WOOD CARVING LATHE OPERATOR [facility] Comment: THE ESTIMATED GFR IS CALCULATED USING THE 2020 CKD-EPI EQUATION. THE FOLLOWING CATEGORIES FOR GRADING RENAL FUNCTION ARE RECOMMENDED BY THE INTERNATIONAL SOCIETY OF NEPHROLOGY (KDIGO 2012 CLINICAL PRACTICE GUIDELINE). G1,NORMAL OR HIGH: >89 ml/min/1.73 m2 G2,MILDLY DECREASED: 60-89 ml/min/1.73 m2 G3A,MILDLY TO MODERATELY DECREASED: 45-59 ml/min/1.73 m2 G3B,MODERATELY TO SEVERELY DECREASED: 30-44 ml/min/1.73 m2 G4,SEVERELY DECREASED: 15-29 ml/min/1.73 m2 G5,KIDNEY FAILURE: <15 ml/min/1.73 m2 06/17/2023 9:11 AM WOOD CARVING LATHE OPERATOR [facility] Final Resul t Performing Organization Address City/[facility]/ZIP Co de Phone Number [address] [address], * TSH W/REFLEX (06/17/2023 9:11 AM WOOD CARVING LATHE OPERATOR) TSH 0.792 0.358 - 3.740 uIU/ML 06/17/2023 4:04 PM WOOD CARVING LATHE OPERATOR [facility] 06/17/2023 9:11 AM WOOD CARVING LATHE OPERATOR [facility] Final Resul t [address] [address], [place] [phone] * LIPID PANEL (06/17/2023 9:11 AM WOOD CARVING LATHE OPERATOR) CHOLESTEROL 159 <200 MG/DL 06/17/2023 4:04 PM WOOD CARVING LATHE OPERATOR [facility] TRIGLYCERIDES 47 <150 MG/DL 06/17/2023 4:04 PM [facility] HDL 61 >40 MG/DL 06/17/2023 4:04 PM [facility] LDL-C 89 <100 MG/DL 06/17/2023 4:04 PM [facility] VLDL CALCULATION 9 5 - 28 MG/DL 06/17/2023 4:04 PM [facility] CHOL/HDL RATIO 2.6 0.0 - 4.0 06/17/2023 4:04 PM [facility] LDL/HDL 1.5 0.41 - 2.13 06/17/2023 4:04 PM [facility] NON HDL CHOLESTEROL 98 <140 MG/DL 06/17/2023 4:04 PM [facility] 06/17/2023 9:11 AM WOOD CARVING LATHE OPERATOR us [facility] Final Resul t [facility] [address] [place] [address], * (ABNORMAL) CBC W/DIFF AUTOMATED (06/17/2023 9:11 AM WOOD CARVING LATHE OPERATOR) WBC 6.27 4.00 - 10.80 x10'3/uL 06/17/2023 3:06 PM [facility] RBC 4.07(L) 4.10 - 5.40 x10'6/uL 06/17/2023 3:06 PM [facility] HGB 11.5(L) 12.0 - 16.0 G/DL 06/17/2023 3:06 PM [facility] HCT 36.4 36.0 - 47.0 % 06/17/2023 3:06 PM [facility] MCV 89.4 78.0 - 100.0 FL 06/17/2023 3:06 PM [facility] MCH 28.3 27.0 - 31.0 PG 06/17/2023 3:06 PM [facility] MCHC 31.6(L) 33.0 - 36.0 G/DL 06/17/2023 3:06 PM [facility] RDW 14.2 11.5 - 14.5 % 06/17/2023 3:06 PM [facility] PLT 268 150 - 350 x10'3/uL 06/17/2023 3:06 PM [facility] MPV 12.6(H) 7.4 - 10.4 FL 06/17/2023 3:06 PM [facility] DIFFERENTIAL TYPE AUTOMATED DIFFERENTIAL 06/17/2023 3:07 PM [facility] NEUTROPHILS % 61.2 % 06/17/2023 3:07 PM [facility] LYMPHOCYTES % 27.0 % 06/17/2023 3:07 PM [facility] MONOCYTES % 6.7 % 06/17/2023 3:07 PM [facility] EOSINOPHILS % 4.8 % 06/17/2023 3:07 PM [facility] BASOPHILS % 0.3 % 06/17/2023 3:07 PM [facility] IMMATURE GRANS % 0.0 % 06/17/2023 3:07 PM [facility] ABS. NEUTROPHILS 3.84 1.60 - 8.30 x10'3/uL 06/17/2023 3:07 PM [facility] ABS. LYMPHOCYTES 1.69 0.80 - 4.70 x10'3/uL 06/17/2023 3:07 PM [facility] ABS. MONOCYTES 0.42 0.00 - 1.50 x10'3/uL 06/17/2023 3:07 PM WOOD CARVING LATHE OPERATOR [facility] ABS. EOSINOPHILS 0.30 0.00 - 0.40 x10'3/uL 06/17/2023 3:07 PM WOOD CARVING LATHE OPERATOR [facility] ABS. BASOPHILS 0.02 0.00 - 0.20 x10'3/uL 06/17/2023 3:07 PM WOOD CARVING LATHE OPERATOR [facility] ABS. IMMATURE GRANULOCYTES 0.00 0.00 - 0.03 x10'3/uL 06/17/2023 3:07 PM WOOD CARVING LATHE OPERATOR [facility] 06/17/2023 9:11 AM WOOD CARVING LATHE OPERATOR [facility] Final Resul t [facility] [address] [place] [address], documented in this encounter Visit Diagnoses Diagnosis General medical exam- Primary Unspecified general medical examination Chronic migraine without aura without status migrainosus, not intractable Chronic migraine without aura, without mention of intractable migraine without mention of status migrainosus Need for hepatitis C screening test Special screening examination for other specified viral diseases documented in this encounter Care Teams Operations And Maintenance Technican Relationship Specialty Start Date End Date Ced Julien APNP [address] [place] [id number] PCP - General NURSE PRACTITIONER 09/24/19 documented as of this encounter
--- OUTSIDE RECORDS SUMMARY | 2024-05-30 13:59 | XMS_ITS | Encounter Summary ---
Author Organization [facility] Address [address] [place] [address]. [place] [address] [place] [address] Care Team Providers Care Engine Wiper Name Role Phone Ofe Julien Primary Care Provider [phone] Encounter Details Date Type Department Care Team (Latest Contact Info) Description 03/03/2023 Travel Social History Tobacco Use Types Packs/Day [...] on filedocumented in this encounter Care Teams Engine Wiper Relationship Specialty Start Date End Date Ofe Julien APNP [address] [place] [address] PCP - General NURSE PRACTITIONER 09/24/19 documented as of this encounter
--- OUTSIDE RECORDS SUMMARY | 2024-05-30 13:59 | XMS_ITS | Encounter Summary ---
Author Organization [facility] Address [address] [place] [address]. [place] [address] [place] [address] Care Team Providers Care Jde Developer Name Role Phone Ofe Julien Primary Care Provider [phone] Encounter Details Date Type Department Care Team (Latest Contact Info) Description 11/24/2022 Travel Social History Tobacco Use Types Packs/Day [...] on filedocumented in this encounter Care Teams Jde Developer Relationship Specialty Start Date End Date Ofe Julien APNP [address] [place] [address] PCP - General NURSE PRACTITIONER 09/24/19 documented as of this encounter
--- OUTSIDE RECORDS SUMMARY | 2024-05-30 13:59 | XMS_ITS | Encounter Summary ---
Author Organization [facility] Address [address] [place] [address]. [place] [address] [place] [address] Care Team Providers Care Clip Wrapper Name Role Phone Ofe Julien Melania [facility] Primary Care Provider [phone] Reason for Visit * Reason Comments Botox * Treatment/Therapy Plan Authorization (Routine) - Closed Specialty Diagnoses / Procedures Referred By Ilia hernandez Referred To Contact Diagnoses Intractable migraine with aura without status migrainosus Procedures BOTULINUM TOXIN A PER UNIT Aravind Munguia MD [address] [place] [address] Phone: tel: fax: [address], [address] [place] [phone] Phone: tel: Referral ID Status Reason Start Date Expiration Date Visits Re quested Visits Authorized [id number] Closed 11/24/2022 11/24/2023 4 4 Encounter Details Date Type Department Care Team (Late st Contact Info) Description 11/24/2022 1:20 PM CDT Office Visit [address], [address] [place] [address] Aravind Munguia MD [address] [place] [address] Botox Social History Tobacco Use Types Packs/Day [...] Sign Reading Time Taken Comments Blood Pressure 120/75 11/24/2022 1:26 PM CDT Pulse 88 11/24/2022 1:26 PM CDT Temperature 37.3 ??C (99.2 ??F) 11/24/2022 1:26 PM CD T Respiratory Rate - - Oxygen Saturation 98% 11/24/2022 1:26 PM CDT Inhaled Oxygen Concentration - - Weight 67.4 kg (148 lb 11.2 oz) 11/24/2022 1:26 PM CDT Height 162.6 cm (5' 4 ) 11/24/2022 1:26 PM CDT Body Mass Index 25.52 11/24/2022 1:26 PM CDT documented in this encounter Progress Notes * Aravind Munguia MD - 11/24/2022 1:20 PM CDT Botox treatment cycle number: 3 Botox side effect: NA Medication effect lasted for: 12 weeks Date of procedure: 11/24/2022 Lot type: buy and bill Wastage: 45 [...] 155 units at 31 different sites. A. Supervisor Labor Gang : 10 Units divided in 2 sites [...] Procedures Routine Chronic migraine with aura Ordered: 11/24/2022 documented as of this encounter Visit Diagnoses Diagnosis Intractable migraine with aura without status migrainosus- Primary Migraine with aura, with intractable migraine, so stated, without mention of status migrainosus Intractable migraine without aura and without status migrainosus Migraine without aura, with intractable migraine, so stated, without mention of status migrainosus Chronic migraine with aura documented in this encounter Administered Medications Inactive Administered Medications - up to 3 most recent administrations Medication Order MAR Action Action Date Dose Rate Site botulinum toxin type A (BOTOX) injection 155 Units 155 Units, Intramuscular, Once, 1 dose, On Tue11/24/22 at 1500, * 200 unit vial *Indications:Intractable migraine with aura without status migrainosus [place] 11/24/2022 1:20 PM CDT 155 Units Other documented in this encounter Care Teams Clip Wrapper Relationship Specialty Start Date End Date Ofe Julien APNP [facility] [place] [address] PCP - General NURSE PRACTITIONER 09/24/19 documented as of this encounter
--- OUTSIDE RECORDS SUMMARY | 2024-05-30 13:59 | XMS_ITS | Encounter Summary ---
Author Organization [facility] Address [address] [place] [address]. [place] [address] [place] [address] Care Team Providers Care Christmas Tree Farm Worker Name Role Phone Ofe Julien Primary Care Provider [phone] Reason for Visit * Reason Onset Date Comments Information 09/16/2023 Encounter Details Date Type Department Care Team (Late st Contact Info) Description 09/16/2023 Telephone [facility] Family & Internal Medicine [id number] [place] [address] Ofe Julien APNP [facility] [place] [address] Information Social History Tobacco Use Types Packs/Day Years [...] as of this encounter Progress Notes * Juliette Stein MA - 09/16/2023 2:42 PM CDT Pt aware. Lab appt scheduled 09/22/23, labs ordered. * Juliette Stein MA - 09/16/2023 2:41 PM CDTAddended by: JULIETTE STEIN on: 09/16/2023 02:41 PM Modules accepted: Orders * NORMAN Mcconnell - 09/16/2023 2:23 PM CDT Can check CBC, iron panel and ferritin * NORMAN Mcconnell - 09/16/2023 1:39 PM CDT She needs to call OB to ask for nausea meds. I'm not sure what they are prescribing as they do not consider zofran safe anymore * Juliette Stein MA - 09/16/2023 1:28 PM CDT LMP 08/12/23. piece work inspector is Dr. Desir. Her first appt with him is scheduled 10/24/23. Pt has just purchased some vitamins. They contain 27 mg iron per serving (1 capsule)She has not begun taking them yet. She had been taking an OTC iron supplement after last labwork showed mild anemia, but stopped taking at end of June d/t traveling, and then forgot to restart. Pt believes she is very deficient, as she did the misa across the forehead test and it left a pamela that she saw online. Pt c/o experiencing some minor nausea and is wondering if you would prescribe her nausea medication, or if she would have to call Dr. Desir and ask for that. * Alejandra Jordan - 09/16/2023 11:54 AM CDT Pt called in stated recently found out she is . Pt has concerns about her last lab work. Ptasking for someone to call her back documented in this encounter Plan of Treatment Not on file documented as of this encounter Results * (ABNORMAL) CBC W/DIFF AUTOMATED (09/22/2023 1:38 PM CDT) WBC 10.91(H) 4.00 - 10.80 x10'3/uL 09/22/2023 7:22 PM CDT [facility] RBC 4.57 4.10 - 5.40 x10'6/uL 09/22/2023 7:22 PM CDT [facility] HGB 12.9 12.0 - 16.0 G/DL 09/22/2023 7:22 PM CDT [facility] HCT 40.3 36.0 - 47.0 % 09/22/2023 7:22 PM CDT [facility] MCV 88.2 78.0 - 100.0 FL 09/22/2023 7:22 PM CDT [facility] MCH 28.2 27.0 - 31.0 PG 09/22/2023 7:22 PM CDT [facility] MCHC 32.0(L) 33.0 - 36.0 G/DL 09/22/2023 7:22 PM CDT [facility] RDW 14.1 11.5 - 14.5 % 09/22/2023 7:22 PM CDT [facility] PLT 267 150 - 350 x10'3/uL 09/22/2023 7:22 PM CDT [facility] MPV 12.1(H) 7.4 - 10.4 FL 09/22/2023 7:22 PM T [facility] DIFFERENTIAL TYPE AUTOMATED DIFFERENTIAL 09/22/2023 7:22 PM [facility] NEUTROPHILS % 74.7 % 09/22/2023 7:22 PM CDT [facility] LYMPHOCYTES % 19.4 % 09/22/2023 7:22 PM CDT [facility] MONOCYTES % 4.4 % 09/22/2023 7:22 PM CDT [facility] EOSINOPHILS % 1.1 % 09/22/2023 7:22 PM CDT [facility] BASOPHILS % 0.3 % 09/22/2023 7:22 PM CDT [facility] IMMATURE GRANS % 0.1 % 09/22/2023 7:22 PM CDT [facility] ABS. NEUTROPHILS 8.15 1.60 - 8.30 x10'3/uL 09/22/2023 7:22 PM CDT [facility] ABS. LYMPHOCYTES 2.12 0.80 - 4.70 x10'3/uL 09/22/2023 7:22 PM CDT [facility] ABS. MONOCYTES 0.48 0.00 - 1.50 x10'3/uL 09/22/2023 7:22 PM CDT [facility] ABS. EOSINOPHILS 0.12 0.00 - 0.40 x10'3/uL 09/22/2023 7:22 PM CDT [facility] ABS. BASOPHILS 0.03 0.00 - 0.20 x10'3/uL 09/22/2023 7:22 PM CDT [facility] ABS. IMMATURE GRANULOCYTES 0.01 0.00 - 0.03 x10'3/uL 09/22/2023 7:22 PM CDT [facility] 09/22/2023 1:38 PM CDT us [facility] Final Resul t -[facility] [address] [place] [address], [place] [phone] * FERRITIN (09/22/2023 1:38 PM CDT) FERRITIN 25.0 8 - 252 NG/ML 09/22/2023 7:55 PM CDT [facility] 09/22/2023 1:38 PM CDT [facility] Final Resul t Performing Organization Address [facility] de Phone Number [facility] [address] [place] [address], [place] [phone] * IRON SAT PANEL (IRON,IBC,%SAT) (09/22/2023 1:38 PM CDT) IRON 69 50 - 170 MCG/DL 09/22/2023 7:55 PM CDT [facility] IRON BINDING CAPACITY 359 250 - 450 MCG/DL 09/22/2023 7:55 PM CDT [facility] IRON SATURATION 19 % 7:55 PM CDT [facility] Comment:REFERENCE RANGE NOT ESTABLISHED 09/22/2023 1:38 PM CDT [facility] Final Resul t Performing Organization Address [facility] Co de Phone Number [facility] [address] [place] [address], [place] [phone] documented in this encounter Visit Diagnoses Diagnosis Anemia- Primary Anemia, unspecified Fatigue Other malaise and fatigue documented in this encounter Care Teams Christmas Tree Farm Worker Relationship Specialty Start Date End Date Ofe Julien APNP [address] [place] [id number] PCP - General NURSE PRACTITIONER 09/24/19 documented as of this encounter
--- OUTSIDE RECORDS SUMMARY | 2024-05-30 13:59 | XMS_ITS | Encounter Summary ---
Author Organization [facility] Address [address] [place] [address]. [place] [address] [place] [address] Care Team Providers Care Director Investment Banking Name Role Phone Ofe Julien Primary Care Provider [phone] Encounter Details Date Type Department Care Team (Latest Contact Info) Description 06/17/2023 Travel Social History Tobacco Use Types Packs/Day [...] on filedocumented in this encounter Care Teams Director Investment Banking Relationship Specialty Start Date End Date Ofe Julien APNP [address] [place] [id number] PCP - General NURSE PRACTITIONER 09/24/19 documented as of this encounter
--- OUTSIDE RECORDS SUMMARY | 2024-05-30 14:00 | XMS_ITS | Encounter Summary ---
Author Organization [facility] - [facility] Address [address] [place] [address]. [place] [address] [place] [address] Care Team Providers Care Cover Stitch Machine Operator Name Role Phone Ofe Julien Primary Care Provider [phone] Encounter Details Date Type Department Care Team (Latest Contact Info) Description 2021 Travel Social History Tobacco Use Types Packs/Day Years Used Date Smoking Tobacco: Never Smokeless Tobacco: Never Alcohol Use Standard Drinks/Week Comments Yes 3.3 (1 standard drink = 0.6 oz p ure alcohol) 2 drinks twice a week PHQ-2 Answer Date Recorded PHQ-2 Score - If the patient scores above 3, please move on to questions 3-9 0 2021 Comments No Sex and Gender Information Value Date Recorded Sex Assigned at Not on file Legal Sex Female 3:56 PM CDT Gender Identity Not on file Sexual Orientation Not on file COVID-19 Exposure Response Date Recorded In the last 10 days, have yo u been in contact with someone who was confirmed or suspected to have Coronavirus/COVID-19? No / Unsure 2021 3:15 PM CDT documented as of this encounter Plan of Treatment Not on file documented as of this encounter Visit Diagnoses Not on filedocumented in this encounter Care Teams Cover Stitch Machine Operator Relationship Specialty Start Date End Date Ofe Julien APNP [address] [place] [phone] PCP - General NURSE PRACTITIONER 09/24/19 documented as of this encounter
--- OUTSIDE RECORDS SUMMARY | 2024-05-30 14:00 | XMS_ITS | Encounter Summary ---
Author Organization [facility] Address [address] [place] [address]. [place] [address] [place] [address] Care Team Providers Care Sales Team Leader Name Role Phone Ofe Julien NORMAN Primary Care Provider [phone] Reason for Visit * Reason Comments Physical Encounter Details Date Type Department Care Team (Late st Contact Info) Description 2021 4:00 PM CDT Office Visit [facility] Family & Internal Medicine [address] [address] Antonio Tirado MD [address] [place] [id number] Physical Social History Tobacco Use Types [...] Sign Reading Time Taken Comments Blood Pressure 128/60 2021 4:45 PM CDT Pulse 75 2021 4:45 PM CDT Temperature 36.8 ??C (98.2 ??F) 2021 4:45 PM CD T Respiratory Rate 12 2021 4:45 PM CDT Oxygen Saturation 98% 2021 4:45 PM CDT Inhaled Oxygen Concentration - - Weight 63.5 kg (140 lb) 2021 4:45 PM CDT Height 162.6 cm (5' 4 ) 2021 4:45 PM CDT Body Mass Index 24.03 2021 4:45 PM CDT documented in this encounter Progress Notes * Antonio Tirado MD - 2021 4:00 PM CDT Images from the original note were not included. Office Progress Note Reason for Visit: Physical History of Present Illness: She is here today for routine follow-up. Migraine headaches: Patient states that her eletriptan at 20 mg does not work well but if she takes2 of these they seem to work better for her migraines. She has noticed that she has an increased frequency of migraines over the past few months but is unsure why this has occurred. She states that in the past she would have 2-4 migraines a month and now she is having at least 2 migraines per week.She states that even despite treatment she sometimes has to just go to bed and not the headache past. She has read about preventive medications and is interested in trying something as a preventativetreatment. We discussed options for prevention. We discussed the CGRP inhibitors both the oral and injectable,we discussed Topamax as a preventive however she is concerned about the possible mental slowing with this medication. We also discussed using antidepressant medications as a preventive and she would prefer not to use these if possible. We also discussed using Nurtec on a as needed basis, but also noted that this is can be used as a preventive dosage also. After this discussion she decided she would like to try Nurtec on a as needed basis first and if this works for her headaches she still continues to get frequent headaches and she may consider another option. We also discussed Botox as some of her headache portions do seem to be musculoskeletal in origin with standing worsened into a migraine. ROS: Review of Systems Constitutional: Negative for malaise/fatigue and weight loss. HENT: Negative for congestion, ear pain, hearing loss and tinnitus. Eyes: Negative for blurred vision. Respiratory: Negative for cough, shortness of breath and wheezing. Cardiovascular: Negative for chest pain, palpitations, claudication, leg swelling and PND. Gastrointestinal: Negative for abdominal pain, heartburn and vomiting. Genitourinary: Negative for dysuria and frequency. Musculoskeletal: Negative for back pain, joint pain and myalgias. Skin: Negative for itching and rash. Neurological: Positive for headaches. Negative for weakness. Psychiatric/Behavioral: Negative for depression. The patient does not have insomnia. Medications: Current Outpatient Medications on File Prior to Visit Medication Sig ??? medroxyPROGESTERone injection No current facility-administered medications on file prior to visit. Allergies: No Known Allergies Medical History: History reviewed. No pertinent past medical history. Surgical History: Past Surgical History: Procedure Laterality Date ??? NAIL REMOVAL ??? ORAL SURGERY PROCEDURE [place] teeth Social History: Social History Socioeconomic History ??? Marital status: Single Tobacco Use ??? Smoking status: Never Smoker ??? Smokeless tobacco: Never Used Vaping Use ??? Vaping Use: Never used Substance and Sexual Activity ??? Alcohol use: Yes Alcohol/week: 3.3 standard drinks Types: 2 Glasses of wine per week Comment: 2 drinks twice a week ??? Drug use: Yes Frequency: 7.0 times per week Types: Marijuana Comment: marijuana gummies and inhalents 7 days a week ??? Sexual activity: Yes Partners: Male control/protection: Pill Family History: Family History Problem Relation Name Age of Onset ??? Cancer Paternal Grandmother breast PE: Physical Exam Constitutional: Appearance: She is well-developed. HENT: Head: Normocephalic and atraumatic. Eyes: General: Lids are normal. Conjunctiva/sclera: Conjunctivae normal. Pupils: Pupils are equal, round, and reactive to light. Neurological: Mental Status: She is alert and oriented to person, place, and time. Psychiatric: Speech: Speech normal. Behavior: Behavior normal. Thought Content: Thought content normal. Judgment: Judgment normal. Filed Vitals: 10/13/21 1645 BP: 128/60 Pulse: 75 Resp: 12 Temp: 98.2 ??F (36.8 ??C) TempSrc: Skin SpO2: 98% Weight: 63.5 kg (140 lb) Height: 5' 4 (1.626 m) Diagnoses/Impression: 1. Intractable migraine without aura and without status migrainosus eletriptan 40 MG tablet DISCONTINUED: eletriptan 40 MG tablet Recommendations and Plan: 1. Intractable migraine without aura and without status migrainosus Trial of Nurtec 75mg - take one at onset of headache, max of 1 tablet in 24 hours. She was instructed that she can take eletriptan after Nurtec if this is not working Patient to call with update on medications after usage - eletriptan 40 MG tablet; Take 1 tablet (40 mg total) by mouth as needed. may repeat in 2 hours ifnecessary Dispense: 90 tablet; Refill: 3 Orders Placed This Encounter ??? DISCONTD: eletriptan 40 MG tablet ??? eletriptan 40 MG tablet PCP: ANTONIO TIRADO MD 2021 documented in this encounter Plan of Treatment Not on file documented as of this encounter Visit Diagnoses Diagnosis Intractable migraine without aura and without status migrainosus Migraine without aura, with intractable migraine, so stated, without mention of status migrainosus documented in this encounter Care Teams Sales Team Leader Relationship Specialty Start Date End Date Ofe Julien APNP [address] [place] [id number] PCP - General NURSE PRACTITIONER 09/24/19 documented as of this encounter
--- OUTSIDE RECORDS SUMMARY | 2024-05-30 14:00 | XMS_ITS | Encounter Summary ---
Author Organization [facility] Address [address] [place] [address]. [place] [address] [place] [address] Care Team Providers Care Air Drier Machine Operator Name Role Phone Ofe Julien Primary Care Provider [phone] Reason for Visit * Reason Comments New Patient Encounter Details Date Type Department Care Team (Late st Contact Info) Description 09/27/2019 8:40 AM CDT Office Visit [facility] Family & Internal Medicine [address] [address] Ofe Julien APNP [address] [place] [address] New Patient Social History Tobacco Use Types Packs/Day Years Used Date Smoking Tobacco: Never Smokeless Tobacco: Never Alcohol Use Standard Drinks/Week Comments Yes 1.7 (1 standard drink = 0.6 oz p ure alcohol) 2 x a month Comments No Sex and Gender Information Value Date Recorded Sex Assigned at Not on file Legal Sex Female 3:56 PM CDT Gender Identity Not on file Sexual Orientation Not on file COVID-19 Exposure Response Date Recorded In the last month, have you been in contact with someone who was confirmed or suspected to have Coronavirus / COVID-19? No / Unsure 09/27/2019 8:37 AM CDT documented as of this encounter Last Filed Vital Signs Vital Sign Reading Time Taken Comments Blood Pressure 107/74 09/27/2019 9:04 AM CDT Pulse 70 09/27/2019 9:04 AM CDT Temperature - - Respiratory Rate 16 09/27/2019 9:04 AM CDT Oxygen Saturation 98% 09/27/2019 9:04 AM CDT Inhaled Oxygen Concentration - - Weight 59 kg (130 lb) 09/27/2019 9:04 AM CDT Height 164.5 cm (5' 4.75 ) 09/27/2019 9:04 AM CD T Body Mass Index 21.8 09/27/2019 9:04 AM CDT documented in this encounter Progress Notes * NORMAN Mcconnell - 09/27/2019 8:40 AM CDT Images from the original note were not included. [facility] OFFICE VISIT Reason for Visit: New Patient History of Present Illness: 18 yo female here today for a new pt physical. She is not , has no kids and is currently a college student and works at [employer]. She is not a smoker, drinks alcohol occasionally and smokes marijuana occasionally. She denies any other illicit drug use. She is currently on OCP for control which she tolerates well. She is not currently on any other prescription medications. She denies any chronic health issues. LMP 09/12/2019. Notes light to normal flow typically. Heavier and irregular before starting OCP. Immunizations - UTD, will update in system. Preventative medicine - none indicated at this time. Labs- due now. Will do today. She is not overweight. Diet - tries to eat healthy. Junk food and fast food minimally. Likes to eat salads. Exercise - she does not routinely exercise - Dental - last dental exam was a couple of months ago Eye - last eye exam was a couple of months ago. She wears contacts. She does note she gets migraine/tensionHA occasionally. Started in 4th grade. Feels like improved over past few years. LAW are located at base of neck and wraps around head and sometimes just all overhead. Has some occasional nausea. Notices LAW worse after long periods of sitting--like in class. Tries to avoid taking meds---but when she takes excedrin---symptoms will usually resolve. Does not wake up with LAW. Denies any neuro symptoms associated with LAW. Feels like LAW. Denies any aura. Occurs less frequently now that school is out. PHQ-2 0. No signs of depression/anxiety. ROS: Review of Systems Constitutional: Negative for chills, fever and malaise/fatigue. HENT: Negative for congestion, hearing loss, sinus pain and sore throat. Eyes: Negative for blurred vision and double vision. Respiratory: Negative for cough and shortness of breath. Cardiovascular: Negative for chest pain, palpitations and leg swelling. Gastrointestinal: Negative for abdominal pain, diarrhea and vomiting. Genitourinary: Negative for dysuria and urgency. Musculoskeletal: Negative for joint pain and myalgias. Skin: Negative for itching and rash. Neurological: Positive for headaches. Negative for dizziness, speech change and focal weakness. Psychiatric/Behavioral: Negative for depression and suicidal ideas. The patient is not nervous/anxious. Medications: Current Outpatient Medications: ??? LO LOESTRIN FE 1 MG-10 MCG / 10 MCG Tab, , Disp: , Rfl: Allergies: No Known Allergies Medical History: No past medical history on file. Surgical History: Past Surgical History: Procedure Laterality Date ??? NAIL REMOVAL ??? ORAL SURGERY PROCEDURE [place] teeth Social History: Social History Socioeconomic History ??? Marital status: Single Spouse name: Not on file ??? Number of children: Not on file ??? Years of education: Not on file ??? Highest education level: Not on file Occupational History ??? Not on file Social Needs ??? Financial resource strain: Not on file ??? Food insecurity: Worry: Not on file Inability: Not on file ??? Transportation needs: Medical: Not on file Non-medical: Not on file Tobacco Use ??? Smoking status: Never Smoker ??? Smokeless tobacco: Never Used Substance and Sexual Activity ??? Alcohol use: Yes Alcohol/week: 1.7 standard drinks Types: 1 Glasses of wine per week Comment: 2 x a month ??? Drug use: Yes Types: Marijuana ??? Sexual activity: Yes Partners: Male control/protection: Pill Lifestyle ??? Physical activity: Days per week: Not on file Minutes per session: Not on file ??? Stress: Not on file Relationships ??? Social connections: Talks on phone: Not on file Gets together: Not on file Attends mu-ism service: Not on file Active member of club or organization: Not on file Attends meetings of clubs or organizations: Not on file Relationship status: Not on file ??? Intimate partner violence: Fear of current or ex partner: Not on file Emotionally abused: Not on file Physically abused: Not on file Forced sexual activity: Not on file Other Topics Concern ??? Not on file Social History Narrative ??? Not on file Family History: Family History Problem Relation Name Age of Onset ??? Cancer Paternal Grandmother breast PE: Physical Exam Constitutional: She is oriented to person, place, and time and well-developed, well-nourished, and in no distress. HENT: Head: Normocephalic and atraumatic. Right Ear: External ear normal. Left Ear: External ear normal. Mouth/Throat: Oropharynx is clear and moist. Eyes: Pupils are equal, round, and reactive to light. Conjunctivae and EOM are normal. No scleral icterus. Neck: Normal range of motion. Neck supple. No JVD present. No tracheal deviation present. No thyromegaly present. Cardiovascular: Normal rate, regular rhythm and intact distal pulses. Exam reveals no gallop and nofriction rub. No murmur heard. Pulmonary/Chest: Effort normal and breath sounds normal. No respiratory distress. She has no wheezes. She has no rales. She exhibits no tenderness. Abdominal: Soft. Bowel sounds are normal. She exhibits no distension and no mass. There is no tenderness. There is no rebound and no guarding. Musculoskeletal: Normal range of motion. She exhibits no edema or tenderness. Lymphadenopathy: She has no cervical adenopathy. Neurological: She is alert and oriented to person, place, and time. She has normal reflexes. Gait normal. Skin: Skin is warm and dry. No rash noted. No erythema. No pallor. Psychiatric: Mood and affect normal. Nursing note and vitals reviewed. Filed Vitals: 09/27/19 0904 BP: 107/74 Pulse: 70 Resp: 16 SpO2: 98% Weight: 59 kg (130 lb) Height: 5' 4.75 (1.645 m) Labs: Labs Reviewed Diagnoses/Impression: 1. General medical examination CBC W/DIFF AUTOMATED LIPID PANEL TSH W/REFLEX URINALYSIS WI REFLEX TO CULTURE COMPREHENSIVE METABOLIC PANEL 2. Chronic tension-type headache, not intractable Recommendations and Plan: 1. General medical examination - CBC W/DIFF AUTOMATED; Future - LIPID PANEL; Future - TSH W/REFLEX; Future - URINALYSIS WI REFLEX TO CULTURE; Future - COMPREHENSIVE METABOLIC PANEL; Future - CBC W/DIFF AUTOMATED - LIPID PANEL - TSH W/REFLEX - URINALYSIS WI REFLEX TO CULTURE - COMPREHENSIVE METABOLIC PANEL Immunizations up-to-date. Routine fasting labs ordered today. We will plan after results. Regular exercise and well-balanced diet discussed and encouraged. BMI within normal limits. Patient not overweight. Patient not due for Pap or other preventative medicine at this time. Pt declined STD screen. 2. Chronic tension-type headache, not intractable Home treatment and monitoring discussed. Patient did mention triptan and the risk, benefits and side effects of these medications were discussed in detail with patient today. Opted not to start thesetoday. would like for patient to treat with [id number] and preventatively initially. If no improvement will consider triptan at that. Patient voiced understanding and is in agreement with this plan. Orders Placed This Encounter ??? CBC W/DIFF AUTOMATED ??? LIPID PANEL ??? TSH W/REFLEX ??? URINALYSIS WI REFLEX TO CULTURE ??? COMPREHENSIVE METABOLIC PANEL ??? LO LOESTRIN FE 1 MG-10 MCG / 10 MCG Tab Cannot display discharge medications since this is not an admission. PCP: NORMAN Mcconnell 09/27/2019 * NORMAN Mcconnell - 09/27/2019 8:40 AM CDT Labs unremarkable. documented in this encounter Plan of Treatment Not on file documented as of this encounter Procedures Procedure Name Priority Date/Time Associated Diagnosis Comments URINALYSIS WI REFLEX TO CULTURE Routine 09/27/2019 9:51 AM CDT General medical examination TSH W/REFLEX Routine 09/27/2019 9:51 AM CDT General medical examination COMPREHENSIVE METABOLIC PANEL Routine 09/27/2019 9:51 AM CDT General medical examination LIPID PANEL Routine 09/27/2019 9:51 AM CDT General medical examination CBC W/DIFF AUTOMATED Routine 09/27/2019 9:51 AM CDT General medical examination documented in this encounter Results * COMPREHENSIVE METABOLIC PANEL (09/27/2019 9:51 AM CDT) GLUCOSE 86 65 - 99 mg/dL [facility] Comment: ? Fasting reference interval BUN 13 7 - 20 mg/dL [facility] CREATININE S/P/B 0.80 0.50 - 1.00 mg/dL [facility] EGFR NON-AFR. AMER. 107 > OR = 60 mL/min/1. 73m2 [facility] EGFR AFR. AMER. 124 > OR = 60 mL/min/1. 73m2 [facility] BUN CREATININE RATIO NOT APPLICABLE 6 - 22 (calc) [facility] SODIUM S/P/B 142 135 - 146 mmol/L [facility] POTASSIUM S/P/B 4.3 3.8 - 5.1 mmol/L [facility] CHLORIDE S/P/B 107 98 - 110 mmol/L [facility] CO2 25 20 - 32 mmol/L [facility] CALCIUM S/P/B 9.9 8.9 - 10.4 mg/dL [facility] TOTAL PROTEIN S/P/B 7.4 6.3 - 8.2 g/dL [facility] ALBUMIN S/P/B 4.4 3.6 - 5.1 g/dL [facility] GLOBULIN 3.0 2.0 - 3.8 g/dL (calc) [facility] ALBUMIN/GLOBUL IN RATIO 1.5 1.0 - 2.5 (calc) [facility] BILIRUBIN TOTAL S/P/B 0.3 0.2 - 1.1 mg/dL [facility] ALK PHOS 44 36 - 128 U/L [facility] AST 15 12 - 32 U/L [facility] ALT 9 5 - 32 U/L [facility] 09/27/2019 9:51 AM CDT 09/28/2019 4:52 AM CDT Narrative Resulting Agency Comment Performing Organization Information: ?Site ID: [id number] ?Name: [employer] [facility] ?Address: [address] [id number] ?Director: Marcelino Blank D.O., MPH us Ofe Melania Anaya [facility] Final Resul t [facility] * (ABNORMAL) URINALYSIS WI REFLEX TO CULTURE (09/27/2019 9:51 AM CDT) COLOR (U) YELLOW YELLOW [place] APPEARANCE SEMEN CLOUDY(A) CLEAR [place] SPECIFIC GRAVITY (U) 1.024 1.001 - 1.035 [place] PH (U) 5.5 5.0 - 8.0 [place] URINE GLUCOSE NEGATIVE NEGATIVE [place] BILIRUBIN (U) NEGATIVE NEGATIVE [place] KETONE (U) NEGATIVE NEGATIVE [place] BLOOD (U) NEGATIVE NEGATIVE [place] PROTEIN (U) NEGATIVE NEGATIVE [place] NITRITES NEGATIVE NEGATIVE [place] LEUKOCYTES (U) NEGATIVE NEGATIVE [place] WBC/HPF NONE SEEN < OR = 5 /HPF [place] RBC/HPF NONE SEEN < OR = 2 /HPF [place] SQUAMOUS EPITHELIAL (U) NONE SEEN < OR = 5 /HPF [place] BACTERIA (U) NONE SEEN NONE SEEN /HPF [place] HYALINE CASTS NONE SEEN NONE SEEN /LPF [place] REFLEX URINE CULTURE: NO CULTURE INDICATED [place] URINE SPECIMEN OBTAINED BY CLEAN CATCH PROCEDURE / Unknown 09/27/2019 9:51 AM CDT 09/28/2019 2:45 AM CDT Narrative Resulting Agency Comment Performing Organization Information: ?Site ID: [id number] ?[facility] ?Address: [address] [address] ?Director: Marylu Haddad [facility] Final Resu lt Performing Organization Address [facility] de Phone Number [facility] [phone] * TSH W/REFLEX (09/27/2019 9:51 AM CDT) TSH 2.21 mIU/L [facility] Comment: ? Reference Range ? 1-19 Years 0.50-4.30 ? Ranges ? First trimester ?? 0.26-2.66 ? Second trimester ??0.55-2.73 ? Third trimester ?? 0.43-2.91 09/27/2019 9:51 AM CDT 09/28/2019 4:52 AM CDT Narrative Resulting Agency Comment Performing Organization Information: ?Site ID: [id number] ?Name: [facility] ?Address: [address] [place] [address] ?Director: Marcelino Blank D.O., MPH [facility] Final Resul t Performing Organization Address [facility] [[email or web address]] Co de Phone Number [facility] * (ABNORMAL) LIPID PANEL (09/27/2019 9:51 AM CDT) CHOLESTEROL 177(H) <170 mg/dL [facility] HDL 65 >45 mg/dL [facility] TRIGLYCERIDES 74 <90 mg/dL [facility] LDL (CALCULATED) 96 <110 mg/dL (calc) [facility] Comment: LDL-C is now calculated using the Leighton-Blake calculation, which is a validated novel method providing better accuracy than the Friedewald equation in the estimation of LDL-C. Leighton SS et al. GERARD. 2013;310(19): 7910-6736 (http://education.SiteBrains/faq/INP281) CHOL/HDL RATIO 2.7 <5.0 (calc) [facility] NON HDL CHOLESTEROL 112 <120 mg/dL (calc) [facility] Comment: For patients with diabetes plus 1 major ASCVD risk factor, treating to a non-HDL-C goal of <100 mg/dL (LDL-C of <70 mg/dL) is considered a therapeutic option. 09/27/2019 9:51 AM CDT 09/28/2019 4:52 AM CDT Narrative Resulting Agency Comment Performing Organization Information: ?Site ID: [place] ?Name: [facility] ?Address: [facility] [place] [address] ?Director: Marcelino Blank D.O., MPH us [facility] Final Resul t [facility] * CBC W/DIFF AUTOMATED (09/27/2019 9:51 AM CDT) WBC 7.7 3.8 - 10.8 Thousand/u L [facility] RBC 4.47 3.80 - 5.10 Million/uL [facility] HGB 13.8 11.7 - 15.5 g/dL [facility] HCT 40.7 35.0 - 45.0 % [facility] MCV 91.1 80.0 - 100.0 fL [facility] MCH (QHPE) 30.9 27.0 - 33.0 pg [facility] MCHC 33.9 32.0 - 36.0 g/dL [facility] RDW (QHPE) 11.8 11.0 - 15.0 % [facility] PLT 242 140 - 400 Thousand/u L [facility] MPV 11.5 7.5 - 12.5 fL [facility] ABS. NEUTROPHILS 4,605 1,500 - 7,800 cells/uL [facility] ABS. LYMPHOCYTES 2,295 850 - 3,900 cells/uL [facility] ABS. MONOCYTES 501 200 - 950 cells/uL [facility] ABS. EOSINOPHILS 262 15 - 500 cells/uL [facility] ABS. BASOPHILS 39 0 - 200 cells/uL [facility] SEG NEUTROPHILS 59.8 % [facility] [place] [facility] LYMPHOCYTES 29.8 % [facility] MONOCYTES 6.5 % [facility] EOSINOPHILS 3.4 % [facility] BASOPHILS 0.5 % [facility] 09/27/2019 9:51 AM CDT 09/28/2019 4:52 AM CDT Narrative Resulting Agency Comment Performing Organization Information: ?Site ID: [place] ?Name: [facility] ?Address: [address] [place] [id number] ?Director: Marcelino Blank D.O., MPH us [facility] Final Resul t [facility] documented in this encounter Visit Diagnoses Diagnosis General medical examination- Primary Unspecified general medical examination Chronic tension-type headache, not intractable Chronic tension type headache documented in this encounter Care Teams Air Drier Machine Operator Relationship Specialty Start Date End Date Ofe Julien APNP [address] [place] [id number] PCP - General NURSE PRACTITIONER 09/24/19 documented as of this encounter
--- OUTSIDE RECORDS SUMMARY | 2024-05-30 14:00 | XMS_ITS | Encounter Summary ---
Author Organization [facility] Address [address] [place] [address]. [place] [address] [place] [address] Care Team Providers Care Pedorthist Name Role Phone Ofe Julien Primary Care Provider Reason for Visit * Reason Onset Date Comments Appointment Request 09/03/2021 Encounter Details Date Type Department Care Team (Late st Contact Info) Description 09/03/2021 Telephone [facility] Family & Internal Medicine [id number] [place] [address] Ofe Julien APNP [facility] [place] [address] Appointment Request Social History Tobacco Use Types Packs/Day Years Used Date Smoking Tobacco: Never Smokeless Tobacco: Never Alcohol Use Standard Drinks/Week Comments Yes 1.7 (1 standard drink = 0.6 oz p ure alcohol) 2 x a month PHQ-2 Answer Date Recorded PHQ-2 Score - [...] as of this encounter Progress Notes * Rayna Sloan MA - 09/07/2021 10:33 AM CDT Tried again, got this time and [facility] to schedule 4pm appt with Dr. Tirado later this week or next * Rayna Sloan MA - 09/07/2021 9:30 AM CDT Tried to contact pt to schedule, phone answered but hung up x 2. * Antonio Tirado MD - 09/06/2021 6:33 PM CDT I can see patient or [place] - whoever has space for her to be seen. * Tova Frost - 09/03/2021 12:53 PM CDT Will you see patient near end of day around 4pm for medication follow up? Ofe doesn't have schedule times that late. * Tova Frost - 09/03/2021 12:53 PM CDT ----- Message from Pushpa Alvarado sent at 09/02/2021 2:13 PM CDT ----- Regarding: Appointment Request Contact: Yes please see if someone else can see me. Thank you! documented in this encounter Plan of Treatment Not on file documented as of this encounter Visit Diagnoses Not on filedocumented in this encounter Care Teams Pedorthist Relationship Specialty Start Date End Date Ofe Julien APNP [address] [place] [address] PCP - General NURSE PRACTITIONER 09/24/19 documented as of this encounter
--- OUTSIDE RECORDS SUMMARY | 2024-05-30 14:00 | XMS_ITS | Encounter Summary ---
Author Organization [facility] Address [address] [place] [address]. [place] [address] [place] [address] Care Team Providers Care Vehicle And Equipment Cleaner Name Role Phone Ofe Julien Primary Care Provider Reason for Visit * Reason Onset Date Comments Lab Results 09/28/2019 Encounter Details Date Type Department Care Team (Late st Contact Info) Description 09/28/2019 Telephone [facility] Family & Internal Medicine [id number] [place] [address] Ofe Julien APNP [facility] [place] [address] Lab Results Social History Tobacco [...] AM CDT documented as of this encounter Progress Notes * Aure Banerjee MA - 09/28/2019 3:31 PM CDT Lm of the following. * Aure Banerjee MA - 09/28/2019 3:31 PM CDT ----- Message from NORMAN Mcconnell sent at 09/28/2019 2:54 PM CDT ----- Labs unremarkable. documented in this encounter Plan of Treatment Not on file documented as of this encounter Visit Diagnoses Not on filedocumented in this encounter Care Teams Vehicle And Equipment Cleaner Relationship Specialty Start Date End Date Ofe Julien APNP [address] [place] [address] PCP - General NURSE PRACTITIONER 09/24/19 documented as of this encounter
--- OUTSIDE RECORDS SUMMARY | 2024-05-30 14:00 | XMS_ITS | Encounter Summary ---
Author Organization [facility] Address [address] [place] [address]. [place] [address] [place] [address] Care Team Providers Care Technical Lead Name Role Phone Ofe Julien Primary Care Provider Reason for Visit * Reason Onset Date Comments Headache 02/21/2020 Encounter Details Date Type Department Care Team (Late st Contact Info) Description 02/21/2020 Telephone [facility] Family & Internal Medicine [facility] [address] [place] [address] Ofe Julien APNP [facility] [place] [address] Headache Social History Tobacco Use Types Packs/Day Years [...] as of this encounter Progress Notes * Tova Frost - 02/26/2020 11:23 AM CDT Patient scheduled. * Lyn Almodovar RN - 02/25/2020 4:09 PM CDT LMTC 02/25/20 * NORMAN Mcconnell - 02/22/2020 3:54 PM CDT Not sure that I would have time in a phone call to discuss treatment option and migraines more in depth * Frannie Marin MA - 02/22/2020 3:12 PM CDT Patient contacted and states she went to an urgent care yesterday and received a shot for her migraine. I informed her that you would like to see her for an appointment to discuss treatment options. She states she just started a new job and works until 5 and not able to take off work any time soon.Offered a video visit during her lunch and she says she works through lunch? She is wanting to do just a phone call with you. I informed that I wasn't sure this was an option. * NORMAN Mcconnell - 02/22/2020 2:06 PM CDT We can call and check on pt. Is she still having migraines? Follow up to discuss tx options * Antonio Tirado MD - 02/21/2020 5:06 PM CDT Can we contact her in the morning and see if she is still having a headache then discuss with [facility] treatment * Ava Jordan - 02/21/2020 11:29 AM CDT PT called back in and asked to be able to come in today for a shot to break the migraine cycle. * Tova Frost - 02/21/2020 11:14 AM CDT Pt calling in because she has been tracking headaches and trying her own remedies for dealing with them but it is not working. So she would like to discuss starting migraine medication if possible. She said they are really bothersome and affect her more than she would like documented in this encounter Plan of Treatment Not on file documented as of this encounter Visit Diagnoses Not on filedocumented in this encounter Care Teams Technical Lead Relationship Specialty Start Date End Date Ofe Julien APNP [address] [place] [address] PCP - General NURSE PRACTITIONER 09/24/19 documented as of this encounter
--- OUTSIDE RECORDS SUMMARY | 2024-05-30 14:00 | XMS_ITS | Encounter Summary ---
Author Organization [facility] Address [address] [place] [address]. [place] [address] [place] [address] Care Team Providers Care Floorworker Lasting Name Role Phone Ofe Julien Primary Care Provider Encounter Details Date Type Department Care Team (Late st Contact Info) Description 01/24/2020 MyChart Message Enc [facility] Family & Internal Medicine [facility] [address] [place] [address] Ofe Julien APNP [address] [place] [address] Other Social History Tobacco Use Types Packs/Day Years [...] on filedocumented in this encounter Care Teams Floorworker Lasting Relationship Specialty Start Date End Date Ofe Julien APNP [facility] [place] [address] PCP - General NURSE PRACTITIONER 09/24/19 documented as of this encounter
--- OUTSIDE RECORDS SUMMARY | 2024-05-30 14:00 | XMS_ITS | Encounter Summary ---
Author Organization [facility] Address [address] [place] [address]. [place] [address] [place] [address] Care Team Providers Care Marine Chronometer Assembler Name Role Phone Ofe Julien Primary Care Provider [phone] Reason for Visit * Reason Onset Date Comments Letter 01/24/2020 Encounter Details Date Type Department Care Team (Late st Contact Info) Description 01/24/2020 Telephone [facility] Family & Internal Medicine [facility] [address] [place] [address] Ofe Julien APNP [facility] [place] [address] Letter Social History Tobacco Use Types Packs/Day Years [...] encounter Progress Notes * Tova Frost - 01/24/2020 3:52 PM CDT Letter written. Patient will print out of mychart * Su Billy - 01/24/2020 11:56 AM CDT Patient came into the office asking about this letter. She stated that she just need a letter so she can go back to work. She is okay with it saying she was out with abdominal pain. * NORMAN Mcconnell - 01/24/2020 9:54 AM CDT I can't say that it was not COVID related, I can only say symptoms pt had and that these symptoms are not typical COVID symptoms. * Destiny Crooks MA - 01/24/2020 9:17 AM CDT Patient called off work due to severe menstrual cramps yesterday and her work is requiring a note stating her illness was not COVID related in order for her to RTW. [facility] mDialog.Patient will print letter from [employer] when ready. CB#[phone] * NORMAN Mcconnell - 01/24/2020 9:01 AM CDT Can someone call and get more information from her please * Ava Jordan - 01/24/2020 7:51 AM CDT Pt missed work yesterday due to cramping in her abd, now work is needing a note stating that she did not miss due to anything COVID related. documented in this encounter Plan of Treatment Not on file documented as of this encounter Visit Diagnoses Not on filedocumented in this encounter Care Teams Marine Chronometer Assembler Relationship Specialty Start Date End Date Ofe Julien APNP NPI: [id number] [place] [id number] PCP - General NURSE PRACTITIONER 09/24/19 documented as of this encounter
--- OUTSIDE RECORDS SUMMARY | 2024-05-30 14:00 | XMS_ITS | Encounter Summary ---
Author Organization [facility] Address [address] [place] [address]. [place] [address] [place] [address] Care Team Providers Care Drainage Design Coordinator Name Role Phone Ofe Julien NORMAN Primary Care Provider [phone] Reason for Visit * Reason Comments MRI (SCAN) Lab (SCAN) Encounter Details Date Type Department Care Team ([facility] Contact Info) Description 03/19/2020 Scan HEALTH INFO SRVCS Scanned, Documents MRI (SCAN); Lab (SCAN) Social History Tobacco Use Types Packs/Day Years [...] have Coronavirus / COVID-19? No / Unsure 03/03/2020 11:08 AM CDT documented as of this encounter Plan of Treatment Not on file documented as of this encounter Procedures Procedure Name Priority Date/Time Associated Diagnosis Comments MRI GENERIC 03/19/2020 OUTSIDE LAB (SCAN ORDER) 03/19/2020 documented in this encounter Results * OUTSIDE LAB (SCAN) (03/19/2020) 03/19/2020 Narrative 03/19/2020 Ordered by an unspecified provider. us Documents Scanned SCANNING Final Result * MRI GENERIC (03/19/2020) Anatomical Region Laterality Modality Other 03/19/2020 Narrative 03/19/2020 Ordered by an unspecified provider. us Documents Scanned SCANNING Final Result documented in this encounter Visit Diagnoses Not on filedocumented in this encounter Care Teams Drainage Design Coordinator Relationship Specialty Start Date End Date Ofe Julien APNP [address] [place] [id number] PCP - General NURSE PRACTITIONER 09/24/19 documented as of this encounter
--- OUTSIDE RECORDS SUMMARY | 2024-05-30 14:00 | XMS_ITS | Encounter Summary ---
Author Organization [facility] Address [address] [place] [address]. [place] [address] [place] [address] Care Team Providers Care Lettuce Cutter Name Role Phone Ofe Julien Primary Care Provider [phone] Encounter Details Date Type Department Care Team (Latest Contact Info) Description 11/11/2021 Scan HEALTH INFO SRVCS Scanned, Documents Social History Tobacco Use Types Packs/Day Years [...] on filedocumented in this encounter Care Teams Lettuce Cutter Relationship Specialty Start Date End Date Ofe Julien APNP [address] [place] [id number] PCP - General NURSE PRACTITIONER 09/24/19 documented as of this encounter
--- OUTSIDE RECORDS SUMMARY | 2024-05-30 14:00 | XMS_ITS | Encounter Summary ---
Author Organization [facility] Address [address] [place] [address]. [place] [address] [place] [address] Care Team Providers Care Gps Navigation Installer Name Role Phone Ofe Julien Primary Care Provider [phone] Reason for Referral * Consultation/Treatment (Routine) - Closed Specialty Diagnoses / Procedures Referred By Ilia hernandez Referred To Contact NEUROLOGY Diagnoses Intractable migraine without aura and without status migrainosus Procedures OFFICE/OUTPT VISIT,NEW,LEVL III OFFICE/OUTPT VISIT,NEW,LEVL IV OFFICE/OUTPT VISIT,NEW,LEVL V OFFICE/OUTPT VISIT,EST,LEVL III OFFICE/OUTPT VISIT,EST,LEVL IV OFFICE/OUTPT VISIT,EST,LEVL V Ofe Julien APNP [address] [place] [address] Phone: tel: fax: Lucius Jacques MD [address] [place] [address] Phone: tel: fax: Referral ID Status Reason Start Date Expiration Date V isits Requested Visits Authorized [id number] Closed Specialty Services 01/26/2022 02/26/2023 100 100 Reason for Visit * Reason Onset Date Comments Referral 01/26/2022 Encounter Details Date Type Department Care Team (Late st Contact Info) Description 01/26/2022 Telephone [facility] Family & Internal Medicine - [place] [address] [place] [address] Ofe Julien APNP [address] [place] [address] Referral Social History Tobacco Use Types Packs/Day Years [...] as of this encounter Progress Notes * Codie Jacques MA - 01/26/2022 2:44 PM CDT Referral placed. Pt notified and v/u to this. BB 01/26/2022 * NORMAN Mcconnell - 01/26/2022 2:01 PM CDT Referral OK * Destiny Crooks MA - 01/26/2022 11:08 AM CDT Patient is asking if she can be referred to a neurologist for her migraines. The Nurtec and eletriptan haven't been effective. [id number]#[phone] documented in this encounter Plan of Treatment Scheduled Referrals Name Type Priority Associated Diagnoses Orde r Schedule Ambulatory referral to Neurology (OTHER) Referral Routine Intractable migraine without aura and without status migrainosus Ordered: 01/26/2022 documented as of this encounter Visit Diagnoses Diagnosis Intractable migraine without aura and without status migrainosus- Primary Migraine without aura, with intractable migraine, so stated, without mention of status migrainosus documented in this encounter Care Teams Gps Navigation Installer Relationship Specialty Start Date End Date Ofe Julien APNP [address] [place] [id number] PCP - General NURSE PRACTITIONER 09/24/19 documented as of this encounter
--- OUTSIDE RECORDS SUMMARY | 2024-05-30 14:00 | XMS_ITS | Encounter Summary ---
Author Organization [facility] Address [address] [place] [address]. [place] [address] [place] [address] Care Team Providers Care Road Machine Operator Name Role Phone Ofe Julien Primary Care Provider Reason for Visit * Reason Comments Migraine only stop when sleep ing. Encounter Details Date Type Department Care Team (Late st Contact Info) Description 03/04/2020 8:20 AM CDT Telemedicine [facility] Family & Internal Medicine [place] [address] [place] [address] Ofe Julien APNP [facility] [place], [place] [id number] Migraine (only stop when sleeping. ) Social History Tobacco Use Types Packs/Day [...] Sign Reading Time Taken Comments Blood Pressure - - Pulse - - Temperature - - Respiratory Rate - - Oxygen Saturation - - Inhaled Oxygen Concentration - - Weight 59 kg (130 lb) 03/04/2020 8:25 AM CDT Height 162.6 cm (5' 4 ) 03/04/2020 8:25 AM CDT Body Mass Index 22.31 03/04/2020 8:25 AM CDT documented in this encounter Progress Notes * Ofe JulienNORMAN - 03/04/2020 8:20 AM CDT Images from the original note were not included. [facility] FAMILY AND INTERNAL MEDICINE OFFICE VISIT I introduced and identified myself, received verbal consent from the patient to proceed with this video visit and made the patient aware that the same confidentiality and senior information developer practices apply. The patient joined the video visit from Home. I completed the virtual visit from Office. The following clinical staff helped with this visit Nurse: Lyn. Total Time Spent in Minutes: 20 Reason for Visit: Migraine (only stop when sleeping. ) History of Present Illness: 19 yo female presents today to discuss migraine management. We had discussed this at a previous visit in September 2019. At that time, pt had decided to manage her migraines with OTC meds. She tried excedrin, tylenol and ibuprofen which does not always help. She typically has to go to sleep in a dark room for headaches to resolve. Since then, she feels like her migraines have increased in frequency now occurring once every 2 weeks. Prior--they were occurring more sporadically, maybe only once per month. She notes the characterof the migraine changed about 2 years ago---developed some vision changes and dizziness with the migraines. Denies any vision changes before migraines. She had a very severe last week to the point where she had to leave work--which prompted her to make this appt. She notes her brother and father both get migraines. Father takes eletriptan and states this helps him--would like to try this if she could. Migraines typically occur on one side of her head--will often move to the other. She does develop some nausea, vomiting, photophobia, phonophobia. Migraines will occur about once every 2 weeks and will last for about a day. She notes migraines typically always occur around the beginning of her cycle. She feels like her migraines started at about age 8 and other than the dizziness/vision changes, denies any really change in symptoms. ROS: Review of Systems Constitutional: Negative for chills, fever and malaise/fatigue. HENT: Negative for sinus pain and sore throat. Eyes: Positive for photophobia. Negative for blurred vision and double vision. Respiratory: Negative for cough and shortness of breath. Cardiovascular: Negative for chest pain. Gastrointestinal: Positive for nausea and vomiting. Neurological: Positive for dizziness and headaches. Negative for tingling, sensory change, speech change and focal weakness. Medications: Current Outpatient Medications: ??? Eletriptan Hydrobromide 20 MG Tab, Take 1 tablet by mouth once for 1 dose. repeat after 2 hoursif needed. Do not exceed 80 mg per day., Disp: 12 tablet, Rfl: 5 ??? medroxyPROGESTERone 150 MG/ML injection, Inject 150 mg into the muscle every 3 (three) months.,Disp: , Rfl: Allergies: No Known Allergies Medical History: History reviewed. No pertinent past medical history. Surgical History: Past Surgical History: Procedure Laterality Date ??? NAIL REMOVAL ??? ORAL SURGERY PROCEDURE [place] teeth Social History: Social History Socioeconomic History ??? Marital status: Single Spouse name: Not on file ??? Number of children: Not on file ??? Years of education: Not on file ??? Highest education level: Not on file Occupational History ??? Not on file Social Needs ??? Financial resource strain: Not on file ??? Food insecurity Worry: Not on file Inability: Not on file ??? Transportation needs Medical: Not on file Non-medical: Not on file Tobacco Use ??? Smoking status: Never Smoker ??? Smokeless tobacco: Never Used Substance and Sexual Activity ??? Alcohol use: Yes Alcohol/week: 1.7 standard drinks Types: 1 Glasses of wine per week Comment: 2 x a month ??? Drug use: Yes Types: Marijuana ??? Sexual activity: Yes Partners: Male control/protection: Pill Lifestyle ??? Physical activity Days per week: Not on file Minutes per session: Not on file ??? Stress: Not on file Relationships ??? Social connections Talks on phone: Not on file Gets together: Not on file Attends hoahaoism service: Not on file Active member of club or organization: Not on file Attends meetings of clubs or organizations: Not on file Relationship status: Not on file ??? Intimate partner violence Fear of current or ex partner: Not [...] no distress. HENT: Head: Normocephalic and atraumatic. Pulmonary/Chest: Effort normal. No respiratory distress. Neurological: She is alert and oriented to person, place, and time. Psychiatric: Mood and affect normal. Filed Vitals: 03/04/20 0825 Weight: 59 kg (130 lb) Height: 5' 4 (1.626 m) Labs: Labs Reviewed Diagnoses/Impression: 1. Intractable migraine without aura and without status migrainosus Chronic Eletriptan [id number] MG Tab 2. Increased severity of headaches MRI BRAIN WWO CON 3. Dizziness MRI BRAIN WWO CON Recommendations and Plan: 1. Intractable migraine without aura and without status migrainosus - Eletriptan Hydrobromide 20 MG Tab; Take 1 tablet by mouth once for 1 dose. repeat after 2 hours if needed. Do not exceed 80 mg per day. Dispense: 12 tablet; Refill: 5 2. Increased severity of headaches - MRI BRAIN WWO CON; Future 3. Dizziness - MRI BRAIN WWO CON; Future Suspect LAW due to migraines, most likely hormonal in nature. No LAW danger signs noted in HPI. Discussed treatment options with pt today. She would like to try triptans. Discussed risks, benefits and side effects of this med. Will also order brain MRI due to change in LAW severity/frequency. More plan after results if needed. Would like to see pt back in 2 months for Re-eval. Orders Placed This Encounter ??? MRI BRAIN WWO CON ??? medroxyPROGESTERone 150 MG/ML injection ??? Eletriptan Hydrobromide 20 MG Tab Cannot display discharge medications since this is not an admission. PCP: NORMAN Mcconnell 03/04/2020 documented in this encounter Plan of Treatment Not on file documented as of this encounter Visit Diagnoses Diagnosis Intractable migraine without aura and without status migrainosus- Primary Migraine without aura, with intractable migraine, so stated, without mention of status migrainosus Increased severity of headaches Headache Dizziness Dizziness and giddiness documented in this encounter Care Teams Road Machine Operator Relationship Specialty Start Date End Date Ofe Julien APNP [address] [place] [address] PCP - General NURSE PRACTITIONER 09/24/19 documented as of this encounter
--- OUTSIDE RECORDS SUMMARY | 2024-05-30 14:00 | XMS_ITS | Encounter Summary ---
Author Organization [facility] Address [address] [place] [address]. [place] [address] [place] [address] Care Team Providers Care Housecleaner Floor Name Role Phone Ced Julien Primary Care Provider Reason for Visit * Reason Onset Date Comments Refill Request 11/14/2019 Encounter Details Date Type Department Care Team (Late st Contact Info) Description 11/14/2019 Telephone [facility] Family & Internal Medicine [facility] [address] [place] [address] Ced Julien APNP [facility] [place] [address] Refill Request Social History Tobacco Use Types Packs/Day [...] as of this encounter Progress Notes * Destiny Crooks MA - 11/14/2019 10:51 AM CDT Refill request received from Pharmacy Last visit with CED JULIEN in INTERNAL MEDICINE was on: 09/27/2019 in [facility] No future appointments. [employer] [facility] #[id number] [place], [place] - [address] [facility] [id number] Current Outpatient Medications: ??? LO LOESTRIN FE 1 MG-10 MCG / 10 MCG Tab, , Disp: , Rfl: documented in this encounter Plan of Treatment Not on file documented as of this encounter Visit Diagnoses Diagnosis Surveillance of previously prescribed contraceptive pill- Primary documented in this encounter Care Teams Housecleaner Floor Relationship Specialty Start Date End Date Ced Julien APNP [address] [place] [id number] PCP - General NURSE PRACTITIONER 09/24/19 documented as of this encounter
--- OUTSIDE RECORDS SUMMARY | 2024-05-30 14:00 | XMS_ITS | Encounter Summary ---
Author Organization [facility] Address [address] [place] [address]. [place] [address] [place] [address] Care Team Providers Care Production Control Analyst Name Role Phone Ofe Julien Primary Care Provider [phone] Reason for Visit * Reason Onset Date Comments Medication Request 03/04/2020 Encounter Details Date Type Department Care Team (Late st Contact Info) Description 03/04/2020 Telephone [facility] Group Family & Internal Medicine [place] [address] [place] [address] Ofe Julien APNP [facility] [place] [address] Medication Request Social History Tobacco Use Types Packs/Day [...] as of this encounter Progress Notes * Frannie Marin MA - 03/06/2020 1:27 PM CDTAddended by: FRANNIE MARIN on: 03/06/2020 01:27 PM Modules accepted: Orders * Frannie Marin MA - 03/06/2020 1:26 PM CDT Spoke with Rosemarie and canceled the depo medrol. * Frannie Marin MA - 03/06/2020 1:21 PM CDT [facility]. Patient informed that she will need to get this rx from her Operations Support Representative. * Destiny Flores MA - 03/06/2020 11:26 AM CDTAddended by: DESTINY FLORES on: 03/06/2020 11:26 AM Modules accepted: Orders * Frannie Marin MA - 03/06/2020 11:15 AM CDT [facility] and the MRI is for [facility]. * Tova Frost - 03/05/2020 10:27 AM CDT Can we change patient's prescription from yesterday to [facility]. She said insurance will cover better and prefers through [facility]. * NORMAN Mcconnell - 03/04/2020 2:09 PM CDT Please update pt's MRI location to [facility]. documented in this encounter Plan of Treatment Not on file documented as of this encounter Visit Diagnoses Diagnosis Surveillance of previously prescribed contraceptive pill- Primary Intractable migraine without aura and without status migrainosus Migraine without aura, with intractable migraine, so stated, without mention of status migrainosus documented in this encounter Care Teams Production Control Analyst Relationship Specialty Start Date End Date Ofe Julien APNP [address] [place] [id number] PCP - General NURSE PRACTITIONER 09/24/19 documented as of this encounter
--- OUTSIDE RECORDS SUMMARY | 2024-05-30 14:00 | XMS_ITS | Encounter Summary ---
Author Organization [facility] Address [address] [place] [address]. [place] [address] [place] [address] Care Team Providers Care Tile Layer Drainage Name Role Phone Ofe Julien Primary Care Provider [phone] Encounter Details Date Type Department Care Team (Latest Contact Info) Description 04/09/2022 Travel Social History Tobacco Use Types Packs/Day [...] Coronavirus/COVID-19? No / Unsure 04/09/2022 10:27 AM INFECTIOUS DISEASES PHYSICIAN documented as of this encounter Plan of Treatment Not on file documented as of this encounter Visit Diagnoses Not on filedocumented in this encounter Care Teams Tile Layer Drainage Relationship Specialty Start Date End Date Ofe Julien APNP [address] [place] [address] PCP - General NURSE PRACTITIONER 09/24/19 documented as of this encounter
--- OUTSIDE RECORDS SUMMARY | 2024-05-30 14:00 | XMS_ITS | Encounter Summary ---
Author Organization [facility] Address [address] [place] [address]. [place] [address] [place] [address] Care Team Providers Care Computer Technology Teacher Name Role Phone Ofe Julien Primary Care Provider [phone] Reason for Visit * Reason Comments Follow Up * Consultation/Treatment (Routine) - Closed Specialty Diagnoses / Procedures Referred By Ilia hernandez Referred To Contact NEUROLOGY Diagnoses Intractable migraine without aura and without status migrainosus Procedures OFFICE/OUTPT VISIT,NEW,LEVL III OFFICE/OUTPT VISIT,NEW,LEVL IV OFFICE/OUTPT VISIT,NEW,LEVL V OFFICE/OUTPT VISIT,EST,LEVL III OFFICE/OUTPT VISIT,EST,LEVL IV OFFICE/OUTPT VISIT,EST,LEVL V Ofe Julien APNP [address] [place] [address] Phone: tel: fax: Lucius Jacques MD [address] [place] [id number] Phone: tel: fax: Referral ID Status Reason Start Date Expiration Date V isits Requested Visits Authorized [id number] Closed Specialty Services 01/26/2022 02/26/2023 100 100 Encounter Details Date Type Department Care Team (Late st Contact Info) Description 04/09/2022 10:40 AM TEAM PRIMARY CARE PHYSICIAN Office Visit [facility] - [address], [address] [place] [phone] Aravind Munguia MD [address] [place] [address] Follow Up Social History Tobacco Use Types [...] Coronavirus/COVID-19? No / Unsure 04/09/2022 10:27 AM TEAM PRIMARY CARE PHYSICIAN documented as of this encounter Last Filed Vital Signs Vital Sign Reading Time Taken Comments Blood Pressure 114/73 04/09/2022 10:49 AM TEAM PRIMARY CARE PHYSICIAN Pulse 75 04/09/2022 10:49 AM TEAM PRIMARY CARE PHYSICIAN Temperature 37 ??C (98.6 ??F) 04/09/2022 10:49 AM TEAM PRIMARY CARE PHYSICIAN Respiratory Rate - - Oxygen Saturation 98% 04/09/2022 10:49 AM TEAM PRIMARY CARE PHYSICIAN Inhaled Oxygen Concentration - - Weight 66 kg (145 lb 8 oz) 04/09/2022 10:[address] Height 162.6 cm (5' 4 ) 04/09/2022 10:49 AM TEAM PRIMARY CARE PHYSICIAN Body Mass Index 24.98 04/09/2022 10:49 AM TEAM PRIMARY CARE PHYSICIAN documented in this encounter Progress Notes * Aravind Munguia MD - 04/09/2022 10:40 AM CST Neurology Clinic [facility] - [address], [address] [place] [address] Dept: [phone] Name: Pushpa Alvarado Date of : 2000 PCP: NORMAN Mcconnell Date: 04/09/2022 Chief Complaint: Migraines History of Present Illness: Pushpa Alvarado is a 21-year-old female with a past medical history significant for migraines whowas referred by NORMAN Mcconnell to the [facility]rology Clinic for evaluation of migraines. She reports having a longstanding history of [...] on any prophylactic treatments. She gets regular health care legal assistant which occasionally helps her symptoms. She has tried Nurtec which is ineffective. She is currently on Eletriptan which sometimes relieves her symptoms. She occasionally drinks caffeine. She has variable sleep quality, she drinks lots of water. MRI performed in 2019 was read as normal. Current Outpatient Medications Medication Sig Dispense Refill ??? eletriptan 40 MG tablet Take 1 tablet (40 mg total) by mouth as needed. may repeat in 2 hours if necessary 90 tablet 3 ??? medroxyPROGESTERone injection ??? rimegepant (NURTEC) 75 MG disintegrating tablet Take 1 tablet (75 mg total) by mouth daily as needed for Migraine. 4 tablet 0 No current facility-administered medications for this visit. History reviewed. No pertinent past medical history. Past Surgical History: Procedure Laterality Date ??? NAIL REMOVAL ??? ORAL SURGERY PROCEDURE [place] teeth Family History Problem Relation Name Age [...] loss of consciousness and weakness. Filed Vitals: 04/09/22 1049 BP: 114/73 Pulse: 75 Temp: 98.6 ??F (37 ??C) TempSrc: Temporal SpO2: 98% Weight: 66 kg (145 lb 8 oz) Height: 5' 4 (1.626 m) GENERAL EXAMINATION [...] SENSATION: Light touch intact. REFLEXES: 2+/4 in upper and lower extremities. COORDINATION: Absent dysmetria on finger -nose -finger. No tremor. GAIT: Normal stride and base. Imaging and Pertinent Labs: See HPI Impression: Pushpa Alvarado is a 21-year-old female with a past medical history significant for migraines whowas referred to the Neurology Clinic for evaluation of migraines. She describes having frequent headaches that are consistent with migraines. She has them for more than 15 days a month which is consistent with chronic migraine. She is never been on prophylaxis. Sheis interested in targeted treatments for chronic migraines. We discussed a multitude of options including Botox. We will attempt to see if she can have that initiated but in the meantime we will start her on propanolol. In regards to acute treatment, she has variable response to Eletriptan. We will try her on another triptan to see if that works better. Plan: #Chronic migraines - Start propranolol 10 mg twice daily - Trial of Maxalt 5 mg to take at the start of a migraine - Can continue eletriptan as prescribed that is more effective than Maxalt - Counseled on lifestyle modification - Start Botox 155 units every 12 weeks for 12 months Return to clinic for next available for Botox Aravind Munguia MD I spent 50 minutes today reviewing the patient's medical record, obtaining history, performing an exam, ordering medications, tests, and/or procedures, documenting in the medical record, counseling and educating the patient, reviewing and communicating test results and coordinating care. PRIMARY CARE PHYSICIAN documented in this encounter Plan of Treatment Not on file documented as of this encounter Visit Diagnoses Diagnosis Chronic migraine with aura- Primary documented in this encounter Care Teams Computer Technology Teacher Relationship Specialty Start Date End Date Ofe Julien APNP [address] [place] [id number] PCP - General NURSE PRACTITIONER 09/24/19 documented as of this encounter
--- OUTSIDE RECORDS SUMMARY | 2024-05-30 14:00 | XMS_ITS | Encounter Summary ---
Author Organization [facility] Address [address] [place] [address]. [place] [address] [place] [address] Care Team Providers Care Buzzsaw Operator Name Role Phone Ofe Julien Primary Care Provider [phone] Encounter Details Date Type Department Care Team (Latest Contact Info) Description 09/27/2019 Travel Social History Tobacco Use Types Packs/Day [...] on filedocumented in this encounter Care Teams Buzzsaw Operator Relationship Specialty Start Date End Date Ofe Julien APNP [address] [place] [phone] PCP - General NURSE PRACTITIONER 09/24/19 documented as of this encounter
--- OUTSIDE RECORDS SUMMARY | 2024-05-30 14:00 | XMS_ITS | Encounter Summary ---
Author Organization [facility] Address [address] [place] [address]. [place] [address] [place] [address] Care Team Providers Care Data Integration Analyst Name Role Phone Ofe Julien Primary Care Provider [phone] Encounter Details Date Type Department Care Team (Latest Contact Info) Description 03/03/2020 Travel Social History Tobacco Use Types Packs/Day [...] on filedocumented in this encounter Care Teams Data Integration Analyst Relationship Specialty Start Date End Date Ofe Julien APNP [address] [place] [address] PCP - General NURSE PRACTITIONER 09/24/19 documented as of this encounter
== END 2024-05-26 14:45 | disposition home or self-care (01) | DRG 807 ==
LOC: ANHLDR 05-24 11:26 → ANHOB2 05-24 14:46
PROVIDERS: Admitting Provider Obstetrics & Gynecology; PCP Registered Nurse; Visit Provider Obstetrics & Gynecology
DX: O80 Encounter for full-term uncomplicated delivery (principal); Z37.0 Single live birth; Z3A.40 40 weeks gestation of pregnancy
CPT/HCPCS: 36415; 85014; 85018; 85025; 86592; 86703; 86850; 86900; 86901; 90715; A9270; G0432; J2590; J2795; J3010; J7120